=== PATIENT | male | born 1985 | race Caucasian/White ===

== ENCOUNTER 2016-10-06 16:50 | Inpatient (IN) | payer OTHER, MEDICAID ==
[2016-10-06] MEDS ORDERED: LORazepam 1 MG TAB PO ONE (17:34)
--- NOTE | 2016-10-06 17:36 | EDPHY ---
H & P Stated Complaint: " "i am looking to get into a psych hospitall" Source: Patient Exam Limitations: No limitations - Personal History Current Tetanus Diphtheria and Acellular Pertussis (TDAP): Yes Tetanus Vaccine Date: 02/2012 - Medical/Surgical History Hx Asthma: No Hx Chronic Respiratory Disease: No Hx Diabetes: No Hx Cardiac Disease: No Hx Renal Disease: No Hx Cirrhosis: No Hx Alcoholism: Yes Hx HIV/AIDS: No Hx Splenectomy or Spleen Trauma: No Other PMH: Medical- schizophrenia, depression, bipolar, HTN, ADHD. COURT ORDERED MEDS - Social History Smoking Status: Heavy smoker Time Seen by Provider: 10/06/16 17:15 HPI/ROS: CHIEF COMPLAINT: Requesting inpatient psychiatric hospitalization HISTORY OF PRESENT ILLNESS: The patient presents to the ED requesting inpatient psychiatric hospitalization. He reports he has been off his psychiatric medications for the past week which include Depakote, Abilify and Zoloft. The patient reportedly is a client of [facility]. The patient states he has had some thoughts of self-harm. He has had thoughts of cutting his wrist. The patient denies any drug or alcohol use. The patient denies any significant past medical history. The patient has not had a regular follow-up appointment with his therapist. The patient did not attempt to go to the crisis Center today. REVIEW OF SYSTEMS: A comprehensive 10 point review of systems is otherwise negative aside from elements mentioned in the history of present illness. (George Groves) - Physical Exam Exam: General Appearance: Disheveled, no acute distress Eyes: Pupils equal and round no pallor or injection ENT, Mouth: Mucous membranes moist Respiratory: There are no retractions, lungs are clear to auscultation Cardiovascular: Regular rate and rhythm Gastrointestinal: Abdomen is soft and nontender, no masses, bowel sounds normal Neurological: A&O, normal motor function, normal sensory exam, normal cranial nerves Skin: Warm and dry, no rashes, multiple tattoos Musculoskeletal: Neck is supple nontender Extremities: symmetrical, full range of motion Psychiatric: Patient is oriented X 3, there is no agitation, cooperative, endorses thoughts of self-harm, reports auditory hallucinations intermittently/ chronically (George Groves) Constitutional: Initial Vital Signs Temperature (C) 36.6 C 10/06/16 17:08 Heart Rate 86 10/06/16 17:08 Respiratory Rate 16 10/06/16 17:08 Blood Pressure 107/67 10/06/16 17:08 O2 Sat (%) 92 10/06/16 17:08 O2 Delivery Mode Room Air Allergies/Adverse Reactions: No Known Allergies Allergy (Verified 09/22/14 21:19) Home Medications: Medication Instructions Recorded ARIPiprazole [Abilify 5 mg (*)] 5 mg PO DAILY 09/23/14 Disulfiram [Antabuse 250 MG (*)] 250 mg PO DAILY 09/23/14 Divalproex ER [Depakote ER 500 MG 3,000 mg PO DAILY 09/23/14 (*)] Paliperidone Palmitate [Invega 234 mg IM Q30D 02/16/15 Sustenna (*)] Sertraline HCl [Zoloft 50mg (*)] 50 mg DAILY 02/16/15 Medical Decision Making ED Course/Re-evaluation: 0731AM: No acute events overnight. Patient pending mental health evaluation. Patient signed over to Dr. Gamez. (Yoni Byrd) 9:15 a.m.. Patient has been evaluated by mental health. He is placed on a 72 hour hold. They are looking for placement Patient remained stable on my shift. (Alfredo Gamez) 4:00 p.m. patient accepted at [address] [place] [address] Birmingham. Transfer paperwork completed. (Austen Feliciano) Care Turn Over: Care to Dr. Feliciano at 3:00 p.m. (Alfredo Gamez) - Data Points Laboratory Results: Laboratory Results 10/06/16 17:40 10/06/16 17:40 Medications Given: Discontinued Medications Diphtheria/Tetanus/Acell Pertussis (Boostrix) 0.5 ml IM .ONCE ONE Stop: 10/06/16 22:27 Last Admin: 10/06/16 22:27 Dose: Not Given Lorazepam (Ativan) 1 mg PO EDNOW ONE Stop: 10/06/16 17:35 Last Admin: 10/06/16 17:52 Dose: 1 mg Departure - Departure Disposition: Other Psych, Not Jimmy Clinical Impression: Schizophrenia Qualifiers: Schizophrenia type: other Qualified Code(s): F20.89 - Other schizophrenia Condition: Fair Referrals: NONE *PRIMARY CARE P,. [Primary Care Provider] - As per Instructions
[2016-10-06 17:48] LABS: ADD DIFF? NO; ADD MORPH? NO; ADD SCAN? NO; ATYPICAL LYMPHOCYTE FLAG 0 (0-99); FRAGMENT RBC FLAG 0 (0-99); HEMATOCRIT 44.6 % (40.0-51.0); HEMOGLOBIN 15.3 g/dL (13.7-17.5); LEFT SHIFT FLG 0 (0-99); LIPEMIA HEMOLYSIS FLAG 90 (0-99); MEAN CELL HEMOGLOBIN 31.4 pg (27.9-34.1); MEAN CELL HEMOGLOBIN CONCENTR. 34.3 g/dL (32.4-36.7); MEAN CELL VOLUME 91.4 fL (81.5-99.8); MEAN PLATELET VOLUME 10.5 fL (8.7-11.7); PLATELET CLUMPS FLAG 0 (0-99); PLATELET COUNT 194 10^3/uL (150-400); RED BLOOD CELL COUNT 4.88 10^6/uL (4.40-6.38); RED CELL DISTRIBUTION WIDTH 13.2 % (11.5-15.2)
[2016-10-06 18:01] LABS: ANION GAP 11 mEq/L (8-16); CARBON DIOXIDE 23 mEq/l (22-31); CHLORIDE 105 mEq/L (97-110); CREATININE 0.7 mg/dL (0.7-1.3); ETHANOL SERUM < 10 mg/dL (0-10); GLOMERULAR FILTRATION RATE > 60; GLUCOSE 88 mg/dL (70-100); POTASSIUM 4.1 mEq/L (3.5-5.2); SODIUM 139 mEq/L (134-144)
[2016-10-06] MEDS ORDERED: TDAP ADULT 0.5 ML INJ (BOOSTRIX) IM ONE (22:26)
[2016-10-07] MEDS ORDERED: LORazepam 0.5 MG TAB PO PRN (20:14)
[2016-10-07] MEDS ORDERED: OLANZapine DISINTEGR 10 MG TAB PO PRN (20:14)
[2016-10-07] MEDS ORDERED: MAGNESIUM HYDROXIDE 30 ML UDCUP PO PRN (20:14)
[2016-10-07] MEDS ORDERED: ACETAMINOPHEN 325 MG TAB PO PRN (20:14)
[2016-10-07] MEDS ORDERED: MAG HYDROX/AL HYDROX/SIMETH 30 ML UDCUP PO PRN (20:14)
[2016-10-08 07:43] LABS: ALBUMIN 3.9 g/dL (3.5-5.0); BILIRUBIN,TOTAL 0.7 mg/dL (0.1-1.4); BILIRUBIN-CONJUGATED 0.5 mg/dL (0.0-0.5); BILIRUBIN-UNCONJUGATED 0.2 mg/dL (0.0-1.1); TOTAL PROTEIN 6.3 g/dL (6.3-8.2)
--- NOTE | 2016-10-08 08:56 | GCON ---
[f rep st] CONSULTATION [facility] BEHAVIORAL HEALTH CLEARANCE EVALUATION REFERRING PHYSICIAN: Mariangel Birmingham MD REASON FOR CONSULTATION: Inpatient behavioral health medical evaluation. HISTORY OF PRESENT ILLNESS: This is a 31-year-old male with history of schizophrenia who presented to the emergency department at [facility] on 10/06/2016 requesting admission to the behavioral health unit. The patient has been off his Depakote, Abilify, and Zoloft for some time. He has been feeli ng very down and depressed with thoughts of self-harm. He has thought about cutting his wrists. He denies any alcohol or tobacco abuse. During the time of my exam, he denies any active medical problems such as fevers or chills. He nickolas es chest pain or shortness of breath. He denies any nausea, vomiting, or diarrhea. He denies any u rinary complaints. PAST MEDICAL HISTORY: 1. Schizophrenia. 2. Depression. 3. Hypertension, not on medications. 4. ADHD. PAST SURGICAL HISTORY: Denies. HOME MEDICATIONS: Zoloft, fish oral, Depakote, Antabuse, Abilify. SOCIAL HISTORY: The patient tells me he lives outside. He denies any alcohol or tobacco; however, the medical records indicate that he is a smoker. FAMILY HISTORY: Reviewed and noncontributory. REVIEW OF SYSTEMS: A comprehensive 10-point review of systems was done and was negative except for as mentioned in the HPI. PHYSICAL EXAMINATION: VITAL SIGNS: Blood pressure 132/70, pulse of 113, respiratory rate 14, O2 sa turation 93% on room air. Temperature afebrile. GENERAL: Disheveled but no acute distress. HEAD: Normocephalic, atraumatic. EYES: PERRLA. Sclerae anicteric. MOUTH: Moist mucous membranes. N AGUS: Supple. No lymphadenopathy. CARDIOVASCULAR: S1, S2. No murmurs, rubs, clicks, gallops. No JVD. No lower extremity edema. PULMONARY: Lungs are clear. No wheezes, rales, or rhonchi. ABDO MEN: Soft, nontender, nondistended. No guarding or rebound tenderness. Normoactive bowel sounds. EXTREMITIES: No clubbing or cyanosis. NEURO: Cranial nerves 2-12 grossly intact. No focal motor or sensory deficits. PSYCH: Flat affect. Avoidance posture. DIAGNOSTICS: WBC 6.9, hemoglobin 15.3, hematocrit 44.6, platelets 194. Sodium 139, potassium 4.1, chloride 105, CO2 23, BUN 28, creatinine 0.7, glucose 88. LFTs unremarkable. Urine tox screen was non-negative for amphetamines and THC. ASSESSMENT: 1. This is a 31-year-old male with a history of schizophrenia who has been admitted to [facility] unit after being off his medications and being acutely depressed. Plan: At this time, the curtis stroud appears to be medically stable for further treatment on the behavioral health unit. Please ca ll the hospitalist service with any further questions regarding his care. 2. Evidence of polysubstance abuse with urine tox screen non-negative for amphetamines and THC. Pl an: Recommend cessation counseling prior to discharge and as an outpatient. 3. Prerenal azotemia evidenced by a BUN of 28 and a creatinine of 0.7. Plan: Encourage oral hydra tion. Thank you for allowing me to participate in the care of this patient. Once again, please call the [facility] service with any further questions regarding his care. /[id number]/MODL
[2016-10-08] MEDS ORDERED: ARIPiprazole 10 MG TAB PO ONE (15:11)
[2016-10-08] MEDS ORDERED: DIVALPROEX ER 500 MG TAB PO ONE (15:13)
[2016-10-08] MEDS: SERTRALINE HCL 50 MG TAB PO SCH (20:42)
--- NOTE | 2016-10-09 01:04 | BAPA ---
[f rep st] ADMISSION PSYCHIATRIC ASSESSMENT DATE OF SERVICE: 10/08/2016 CHIEF COMPLAINT: "I was thinking about killing myself because I lost my apartment. I was thinking of ways to do it, thinking of slitting my wrists." HISTORY OF PRESENT ILLNESS: Patient is a 31-year-old male, who self presented to [facility] Emergency Department reporting suicidal ideation and increased auditory hallucinations due to being off psychiatric medications for about 1 week. Urine drug screen in ED was positive for methamphetamine, but otherwise negative. He was placed on an M1 hold for grave disability on 10/07/2016 at 9: 03 a.m. Patient reported having been evicted from his apartment 1 week earlier and all medications were locked in his apartment. He became very defensive when asked about methamphetamine in his urine drug screen, escalating briefly and saying, "I don't do drugs!" He did endorse having suicidal ideation prior to admission of slitting his wrists with a knife. To the emergency room equipment operation instructor, he stated his intent was possible, "You'd better not discharge me." He also stated he had "knives at my campsite," and at that time, stated, "I need to be in a mental institution!" Per EPS evaluation, he was last seen by psychiatrist, Dr. Pichardo, on 09/10/2016, and note indicated that there were continued concerns about drug use at that time and watching porn loudly in the house. Patient apparently lost his housing through [facility] at the beginning of September due to being noncompliant with housing rules. He last took medications on 10/03/2016 per records, but he reports stopped taking medications 1 week ago. Patient stated he was homeless for the past several days and voices were increasing. He presented with request to restart his medications. PAST PSYCHIATRIC HISTORY: As noted above. Open to [facility] on their housing team with psychiatrist, Dr. Pichardo, diagnosed with schizophrenia at age 16 with multiple inpatient hospitalizations averaging approximately 3 times a year but has been relatively stable since 02/2015 with no inpatient admission since that time. He has also been on court-ordered medication 3 different times in the past, most recently ending 09/27/2015. He has a long history of medication noncompliance. CURRENT MEDICATIONS: Most recent psychiatric medications include Depakote ER 3000 mg p.o. q.a.m. [facility] notes indicate 6 tablets q.a.m. of 500 mg each. Patient reports he thinks he is only supposed to be taking 4 tablets daily. Zoloft 50 mg p.o. q.a.m. Lovaza 1 g, take 2 p.o. q.a.m. with food. Invega Trinza 819 mg IM q.12 weeks. Patient does not want to take this and does not think he needs it. Antabuse 250 mg p.o. q.a.m. He reports no drinking for several years and would like to continue this. Abilify 30 mg p.o. q.a.m., additionally 10 mg p.o. q.a.m. Patient thinks he should be taking 50 mg daily. SAFETY HISTORY: History of suicide attempts per EPS evaluation. Per evaluation on 12/15/2014, "half a bottle of acetaminophen." Evaluation on 2013 includes notation that patient one summer previously had "repeatedly injected his arms with rum causing serious infections." On 12/24/2013 [place] police officers responded to reports of armed male with 2-1/2 foot long machete on the [address] who began holding it over his head in a menacing manner necessitating 2 police officers to brandish their weapons at which the patient let go of the machete. SUBSTANCE USE: History of substance use. Urine drug screen positive for methamphetamine, negative for other drugs of abuse tested for in [place] ED. BAL 0.00. Patient denies any current or recent substance use. He insists he only smokes cigarettes, half pack per day, yet his fingers are extremely heavily nicotine stained. LEGAL HISTORY: Patient has history of unspecified aggression towards others with history of incarceration. Unknown current legal. SOCIAL HISTORY: Unemployed on SSI. unmarried. Per [facility] records, patient has used meth while in [facility] housing, and this has been one of the reasons patient has lost his housing in the past. Recently evicted. MENTAL STATUS EXAMINATION: On admission, patient was disheveled, casually dressed, cooperative with interview, although somewhat impatient and requesting to be restarted on his medications, not wanting to engage in a prolonged interview. Speech was normal rate, volume, articulate. However became loud and angry tone when asked about methamphetamine, denying any use whatsoever. Mood was "depressed". Affect was mildly irritable. He reported current visual and auditory hallucinations, adding "I always hallucinate," then looked up in corner of room and stated, "something just flew down from there and hit me." He did not appear responding to internal stimuli. He denied any suicidal ideation "since I'm here." Thought processes were goal directed. In response , he did not appear to have any thought blocking. He was focused on restarting medications and getting some rest. He denied any thoughts of harming others. He was alert and oriented x4. IMPRESSION: A 31-year-old male with a long history of schizophrenia, medication noncompliance and substance use, who self presented to [facility] ED reporting suicidal ideation with plan to cut wrists and increased auditory hallucinations due to medication noncompliance x1 week in the setting of recent eviction and homelessness requesting restart of his medications. He expresses motivation for treatment, and does have insight into his need for medications and hospitalization although questioned some element of secondary gain due to present homelessness. Given his history of psychosis, self-harm, and threatening behavior, as well as recent substance use and decompensation psychiatrically over past week, off medications, hospitalization is indicated and necessary for restabilization as well as structure of the unit and plans for return to community with mental health support after stabilization. DIAGNOSIS: Schizophrenia, acute exacerbation Methamphetamine use disorder, moderate Nicotine use disorder, moderate Homeless, chronic mental illness PLAN: Restart home medications. Will start at slightly lower dose initially with Depakote 1000 mg now and at h.s. then 2000mg po qhs, Zoloft 50 mg po qhs Patient refuses to restart Invega Trinza. He would like to resume Antabuse 250 mg as well as Abilify, which we will start at 15 mg x1 now then 15 mg h.s. then continue 30 mg q.h.s and evaluate. Patient thereafter. Plan to increase as indicated. Will also add lorazepam 1 mg q.4 hours p.r.n. Patient does complain of excessive sedation and sleepiness, wondering whether we can prescribe caffeine pills, and he does feel he may have a sleeping disorder although was unable to specify, is not sure if he snores at night or stops breathing. Could be worthwhile to try screening for obstructive sleep apnea with nocturnal pulse oximetry. Informed patient of some medications which could be sedating, including Depakote, which he typically takes in the morning, can offer at bedtime. Also Abilify could try at bedtime. He also would like to take Zoloft at bedtime. It is unclear as to whether this is a significant issue, however, since his presentation is confounded with substance use and noncompliance. Will also place on suicide precautions and assault awareness and encourage patient participation in milieu activities and groups. Coordinate care with P. /[id number]/MODL SARAH
[2016-10-09] MEDS ORDERED: CHOLECALCIFEROL VIT D3 2,000 UNITS TAB/CAP ONE (07:36)
[2016-10-09] MEDS ORDERED: VENLAFAXINE XR 75 MG CAP PO ONE (07:37)
[2016-10-09] MEDS ORDERED: VENLAFAXINE XR 150 MG CAP PO ONE (07:38)
[2016-10-09] MEDS ORDERED: GABAPENTIN 300 MG CAP ONE (07:39)
[2016-10-09] MEDS ORDERED: MULTIVITAMINS 1 EACH TAB PO ONE (07:40)
[2016-10-09] MEDS ORDERED: ASCORBIC ACID 500 MG TAB ONE (07:41)
[2016-10-09] MEDS ORDERED: NICOTINE 21 MG/24 HR PATCH TD ONE (07:42)
[2016-10-09] MEDS ORDERED: ARIPiprazole 5 MG TAB PO SCH ×2 (09:00→21:00)
[2016-10-09] MEDS: DISULFIRAM 250 MG TAB PO SCH (11:35)
[2016-10-09] MEDS: DIVALPROEX ER 500 MG TAB PO SCH ×2 (11:35→20:40)
--- NOTE | 2016-10-09 12:44 | SOAPPROG ---
SOAP Progress Note Assessment/Plan: Assessment: Plan: 10/09/16 12:44 Remains psychotic in setting of medication non-compliance and substance abuse. He is willing to take meds at HS. Will adjust. Subjective: Pt seen, discussed with staff. Reports feeling "pretty good." Talks to me about losing his home and needing a place to live. He refused his meds this morning stating that "one of those makes me sleep all day." States he will take them at night. Generally calm, coop, appropriate in the milieu. Objective: Vital Signs Temp Pulse Resp BP Pulse Ox 36.5 C 113 H 14 132/70 H 93 10/07/16 17:55 10/07/16 17:55 10/07/16 17:55 10/07/16 17:55 10/07/16 17:55 MSE; Calm, coop. Affect is constricted, stable. Mood is "good." TP tangential. TC reveals some paranoia, odd beliefs. - Time Spent With Patient Time Spent With Patient: 25" - Pending Discharge Pending Discharge Within 24 Hours: No Pending Discharge Within 48 Hours: No ICD10 Worksheet Patient Problems: Problems Problem Status Onset Schizophrenia Acute Schizophrenia, paranoid, chronic with acute exacerbation Acute
[2016-10-09] MEDS: NICOTINE POLACRILEX 2 MG GUM B PRN (13:31)
[2016-10-09] MEDS: SERTRALINE HCL 50 MG TAB PO SCH (20:40)
[2016-10-09] MEDS: ARIPiprazole 10 MG TAB PO SCH (20:40)
[2016-10-10] MEDS: DIVALPROEX ER 500 MG TAB PO SCH ×3 (09:01→20:38)
[2016-10-10] MEDS: DISULFIRAM 250 MG TAB PO SCH ×2 (09:01→11:03)
--- NOTE | 2016-10-10 16:21 | SOAPPROG ---
SOAP Progress Note Assessment/Plan: Assessment: Plan: 10/09/16 12:44 Remains psychotic in setting of medication non-compliance and substance abuse. He is willing to take meds at HS. Will adjust. 10/10/16 16:23 Cooperative. Psychosis stable. CCM. Subjective: Pt seen, discussed with staff. Reports feeling "fine." Spending most of morning in bed after sleeping more then eight hours last night. He cannot identify goals for treatment or d/c. He is in good behavioral control though irritable at times if pressed. Agrees to take VPA BID, but insists on other meds at HS only. Objective: Vital Signs Temp Pulse Resp BP Pulse Ox 36.5 C 113 H 14 132/70 H 93 10/07/16 17:55 10/07/16 17:55 10/07/16 17:55 10/07/16 17:55 10/07/16 17:55 MSE: Calm, coop. Lying in bed. Affect is blunted, stable. Mood is "fine." TP generally linear. TC reveals no mention of AH's at this time. Guarded and likely paranoid. - Time Spent With Patient Time Spent With Patient: 15" - Pending Discharge Pending Discharge Within 24 Hours: No Pending Discharge Within 48 Hours: No ICD10 Worksheet Patient Problems: Problems Problem Status Onset Schizophrenia Acute Schizophrenia, paranoid, chronic with acute exacerbation Acute
[2016-10-10] MEDS: ARIPiprazole 10 MG TAB PO SCH (20:37)
[2016-10-10] MEDS: SERTRALINE HCL 50 MG TAB PO SCH (20:37)
[2016-10-11] MEDS: DIVALPROEX ER 500 MG TAB PO SCH ×2 (08:36→20:45)
[2016-10-11] MEDS: NICOTINE POLACRILEX 2 MG GUM B PRN (09:17)
[2016-10-11] MEDS ORDERED: TUBERCULIN (PPD) 5 TU/0.1 ML SYRINGE ID ONE (11:17)
--- NOTE | 2016-10-11 13:22 | SOAPPROG ---
SOAP Progress Note Assessment/Plan: Assessment: * Daytime somnolence. Crowded airway. R/O sleep apnea. Should have sleep study as outpatient. Get overnight oxymetry while inpatient. * Obesity. Would benefit from weight reduction. No medical contraindication to any discharge disposition. 10/11/16 13:22 Subjective: ATSP for physical exam needed for discharge destination. C/O sleepy all the time. Says he had eight cups of coffee today. Does not know if he snores; reports drooling at night and awakens because pillow is wet. No sleep attacks or drop attacks. Objective: Vital Signs Temp Pulse Resp BP Pulse Ox 36.8 C 51 L 15 115/68 92 10/11/16 06:23 10/11/16 06:23 10/11/16 06:23 10/11/16 06:23 10/11/16 06:23 Physical Exam - Physical Exam General Appearance: WD/WN, alert, no apparent distress, obese Neck: full range of motion, supple, No thyromegaly Respiratory: normal breath sounds, No crackles, No rhonchi, No wheezing Cardiac/Chest: normal peripheral pulses, regular rate, rhythm, No edema Abdomen: normal bowel sounds, non-tender, soft, No distended Back: Normal inspection Skin: normal color, warm/dry Neuro/Psych: no motor/sensory deficits, alert, normal mood/affect, oriented x 3 , cognition abnormalities (Perseverative) ICD10 Worksheet Patient Problems: Problems Problem Status Onset Schizophrenia Acute Schizophrenia, paranoid, chronic with acute exacerbation Acute
--- NOTE | 2016-10-11 15:43 | SOAPPROG ---
SOAP Progress Note Assessment/Plan: Assessment: Plan: 10/09/16 12:44 Remains psychotic in setting of medication non-compliance and substance abuse. He is willing to take meds at . Will adjust. 10/10/16 16:23 Cooperative. Psychosis stable. CCM. 10/11/16 15:45 Remains cooperative. Compliant with meds. CCM. Continue d/c planning. Subjective: Pt seen, discussed with staff. Reports feeling "worried." States he is worried about his belongings that are in the custody of a friend who is homeless and living in a tent. He states he would rather stay in the hospital until he has a placed to go. Compliant with meds now. Sleeping excessively. Objective: Vital Signs Temp Pulse Resp BP Pulse Ox 36.8 C 51 L 15 115/68 92 10/11/16 06:23 10/11/16 06:23 10/11/16 06:23 10/11/16 06:23 10/11/16 06:23 MSE: Calm, coop. Grooming marginal. Some mild agitation noted later when pacing the jaime. He is internally preoccupied and reports AH's. Also states Dr. Pichardo and P's are "conspiring against me." - Time Spent With Patient Time Spent With Patient: 25" - Pending Discharge Pending Discharge Within 24 Hours: No ICD10 Worksheet Patient Problems: Problems Problem Status Onset Schizophrenia Acute Schizophrenia, paranoid, chronic with acute exacerbation Acute
[2016-10-11] MEDS: SERTRALINE HCL 50 MG TAB PO SCH (20:45)
[2016-10-11] MEDS: ARIPiprazole 10 MG TAB PO SCH (20:45)
[2016-10-11] MEDS: DISULFIRAM 250 MG TAB PO SCH (20:46)
[2016-10-12] MEDS: DIVALPROEX ER 500 MG TAB PO SCH ×2 (09:23→21:03)
--- NOTE | 2016-10-12 15:26 | SOAPPROG ---
SOAP Progress Note Assessment/Plan: Assessment: Plan: 10/09/16 12:44 Remains psychotic in setting of medication non-compliance and substance abuse. He is willing to take meds at . Will adjust. 10/10/16 16:23 Cooperative. Psychosis stable. CCM. 10/11/16 15:45 Remains cooperative. Compliant with meds. CCM. Continue d/c planning. 10/12/16 15:26 No interval change. CCM, continue d/c planning. Subjective: Pt seen, discussed with staff. Remains in good behavioral control. Compliant with meds. No c/o's. Continues to focus on going to [facility] despite my telling him that they do not want him there. He states he wants to remain in the hospital "until I get an apartment." Objective: Vital Signs Temp Pulse Resp BP Pulse Ox 36.7 C 67 14 101/51 L 94 10/12/16 06:15 10/12/16 06:15 10/12/16 06:15 10/12/16 06:15 10/12/16 06:15 MSE: Moderately agitated, pacing, though cooperative and interactive. Affect is constricted, stable. Mood is "OK." TP linear at times, derails at others. TC reveals AH's, paranoia. - Time Spent With Patient Time Spent With Patient: 15" - Pending Discharge Pending Discharge Within 24 Hours: No Pending Discharge Within 48 Hours: No ICD10 Worksheet Patient Problems: Problems Problem Status Onset Schizophrenia Acute Schizophrenia, paranoid, chronic with acute exacerbation Acute
[2016-10-12] MEDS: DISULFIRAM 250 MG TAB PO SCH (21:03)
[2016-10-12] MEDS: SERTRALINE HCL 50 MG TAB PO SCH (21:04)
[2016-10-12] MEDS: ARIPiprazole 10 MG TAB PO SCH (21:04)
[2016-10-13] MEDS: DIVALPROEX ER 500 MG TAB PO SCH ×2 (08:38→21:33)
--- NOTE | 2016-10-13 14:30 | SOAPPROG ---
SOAP Progress Note Assessment/Plan: Assessment: Plan: 10/09/16 12:44 Remains psychotic in setting of medication non-compliance and substance abuse. He is willing to take meds at HS. Will adjust. 10/10/16 16:23 Cooperative. Psychosis stable. CCM. 10/11/16 15:45 Remains cooperative. Compliant with meds. CCM. Continue d/c planning. 10/12/16 15:26 No interval change. CCM, continue d/c planning. 10/13/16 14:30 Remains cooperative and approaching baseline. CCM. Subjective: Pt seen, discussed with staff. Reports feeling "pretty good." Remains compliant and cooperative. Eating excessively. Grooming is adequate. Remains unrealistic re: d/c plans. Objective: Vital Signs Temp Pulse Resp BP Pulse Ox 36.7 C 59 L 14 141/75 H 91 L 10/12/16 06:15 10/13/16 06:24 10/13/16 06:24 10/13/16 06:24 10/13/16 06:24 MSE: Calm, coop. Affect is blunted, stable. Mood is "pretty good." TP linear with continued derailment. TC reveals AH's, paranoia. - Time Spent With Patient Time Spent With Patient: 15" - Pending Discharge Pending Discharge Within 24 Hours: No Pending Discharge Within 48 Hours: No ICD10 Worksheet Patient Problems: Problems Problem Status Onset Schizophrenia Acute Schizophrenia, paranoid, chronic with acute exacerbation Acute
[2016-10-13] MEDS: SERTRALINE HCL 50 MG TAB PO SCH (21:33)
[2016-10-13] MEDS: DISULFIRAM 250 MG TAB PO SCH (21:33)
[2016-10-13] MEDS: ARIPiprazole 10 MG TAB PO SCH (21:33)
[2016-10-14 06:06] VITALS: TEMP 97.6
[2016-10-14] MEDS: DIVALPROEX ER 500 MG TAB PO SCH ×2 (09:27→20:40)
--- NOTE | 2016-10-14 10:52 | SOAPPROG ---
SOAP Progress Note Assessment/Plan: Assessment: Plan: 10/14/16 08:00 DAY UPDATE/EXAM: Nursing reports pt remains in behavioral control, c/w cares and meds; known chronic sx and rx career, dx'd remotely with SAD and SA (meth); h/o noncompliance with community rx including meds; lost [facility] housing 09/04/16 and 1 week [employer] evicted for noise and disruption, unmedicated and likely psychotic at the time; admitted for c/o acute AH and SI; since admission has recompensated on meds as referenced and is in DC planning phase - resisting placement in residential resource for homeless clients/ on exam pesents as flattened, no overt psychosis, very concrete and impoverished thought process; requests DC to street "and I'll find an apartment; I have a voucher: limits set and told pt that CC would discuss realistic DC planning later today which pt accepted ASSESSMENT/PLAN: recompensating progress and in final inpt rx phase/ no change in meds and current focus on establishing DC plan for placement and f/u rx; is an open case with [facility]; meds as referenced Objective: Vital Signs Temp Pulse Resp BP Pulse Ox 36.4 C 66 17 130/71 H 93 10/14/16 05:56 10/14/16 05:56 10/14/16 05:56 10/14/16 05:56 10/14/16 05:56 ICD10 Worksheet Patient Problems: Problems Problem Status Onset Schizophrenia Acute Schizophrenia, paranoid, chronic with acute exacerbation Acute
--- NOTE | 2016-10-14 10:54 | SOAPPROG ---
SOAP Progress Note Assessment/Plan: Assessment: Plan: 10/14/16 08:00 DAY ' UPDATE/EXAM: Nursing reports pt remains in behavioral control, c/w cares and meds; known chronic sx and rx career, dx'd remotely with SAD and SA (meth); h/o noncompliance with community rx including meds; lost [facility] housing 09/04/16 and 1 week [employer] evicted for noise and disruption, unmedicated and likely psychotic at the time; admitted for c/o acute AH and SI; since admission has recompensated on meds as referenced and is in DC planning phase - resisting placement in residential resource for homeless clients/ on exam pesents as flattened, no overt psychosis, very concrete and impoverished thought process; requests DC to street "and I'll find an apartment; I have a voucher: limits set and told pt that CC would discuss realistic DC planning later today which pt accepted ASSESSMENT/PLAN: recompensating progress and in final inpt rx phase/ no change in meds and current focus on establishing DC plan for placement and f/u rx; is an open case with [facility]; meds as referenced 10/14/16 10:53 Medications Generic Name Dose Route Start Last Admin Trade Name Freq PRN Reason Stop Dose Admin Aripiprazole 30 mg 10/09/16 21:00 10/13/16 21:33 Abilify PO 04/07/17 20:59 30 mg HS SID Disulfiram 250 mg 10/11/16 21:00 10/13/16 21:33 Antabuse PO 04/09/17 20:59 250 mg HS SID Divalproex Sodium 1,000 mg 10/09/16 09:00 10/14/16 09:27 Depakote Er PO 04/07/17 08:59 1,000 mg BID SID Sertraline HCl 50 mg 10/11/16 21:00 10/13/16 21:33 Zoloft PO 04/09/17 20:59 50 mg HS SID Objective: Vital Signs Temp Pulse Resp BP Pulse Ox 36.4 C 66 17 130/71 H 93 10/14/16 05:56 10/14/16 05:56 10/14/16 05:56 10/14/16 05:56 10/14/16 05:56 ICD10 Worksheet Patient Problems: Problems Problem Status Onset Schizophrenia Acute Schizophrenia, paranoid, chronic with acute exacerbation Acute
[2016-10-14] MEDS: SERTRALINE HCL 50 MG TAB PO SCH (20:40)
[2016-10-14] MEDS: ARIPiprazole 10 MG TAB PO SCH (20:40)
[2016-10-14] MEDS: DISULFIRAM 250 MG TAB PO SCH (20:40)
--- NOTE | 2016-10-15 06:35 | SOAPPROG ---
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, unmedicated and likely psychotic at the time; admitted for c/o acute AH and SI; since admission has recompensated on meds as referenced and is in DC planning phase - resisting placement in residential resource for homeless clients/ on exam presents as flattened, no overt psychosis, very concrete and impoverished thought process; requests DC to street "and I'll find an apartment; I have a voucher"; limits set and told pt that CC would discuss realistic DC planning later today which pt accepted ASSESSMENT/PLAN: recompensating progress and in final inpt rx phase/ no change in meds and current focus on establishing DC plan for placement and f/u rx; is an open case with [facility]; meds as referenced 10/14/16 10:53 Medications Generic Name Dose Route Start Last Admin Trade Name Freq PRN Reason Stop Dose Admin Aripiprazole 30 mg 10/09/16 21:00 10/13/16 21:33 Abilify PO 04/07/17 20:59 30 mg HS SID Disulfiram 250 mg 10/11/16 21:00 10/13/16 21:33 Antabuse PO 04/09/17 20:59 250 mg HS SID Divalproex Sodium 1,000 mg 10/09/16 09:00 10/14/16 09:27 Depakote Er PO 04/07/17 08:59 1,000 mg BID SID Sertraline HCl 50 mg 10/11/16 21:00 10/13/16 21:33 Zoloft PO 04/09/17 20:59 50 mg HS SID 10/15/16 DAY 02/03' UPDATE/PLAN: Objective: Vital Signs Temp Pulse Resp BP Pulse Ox 36.4 C 66 17 130/71 H 93 10/14/16 05:56 10/14/16 05:56 10/14/16 05:56 10/14/16 05:56 10/14/16 05:56 ICD10 Worksheet Patient Problems: Problems Problem Status Onset Schizophrenia Acute Schizophrenia, paranoid, chronic with acute exacerbation Acute
[2016-10-15] MEDS: DIVALPROEX ER 500 MG TAB PO SCH ×2 (09:28→20:41)
--- NOTE | 2016-10-15 13:19 | SOAPPROG ---
SOAP Progress Note Assessment/Plan: Assessment: Plan: 10/14/16 08:00 DAY UPDATE/EXAM: Nursing reports pt remains in behavioral control, c/w cares and meds; known chronic sx and rx career, dx'd remotely with SAD and SA (meth); h/o noncompliance with community rx including meds; lost [facility] housing 09/04/16 and 1 week [employer]IVATE [employer] EX[employer] evicted for noise and disruption, unmedicated and likely psychotic at the time; admitted for c/o acute AH and SI; since admission has recompensated on meds as referenced and is in DC planning phase - resisting placement in residential resource for homeless clients/ on exam presents as flattened, no overt psychosis, very concrete and impoverished thought process; requests DC to street "and I'll find an apartment; I have a voucher"; limits set and told pt that CC would discuss realistic DC planning later today which pt accepted ASSESSMENT/PLAN: recompensating progress and in final inpt rx phase/ no change in meds and current focus on establishing DC plan for placement and f/u rx; is an open case with [facility]; meds as referenced 10/14/16 10:53 Medications Generic Name Dose Route Start Last Admin Trade Name Freq PRN Reason Stop Dose Admin Aripiprazole 30 mg 10/09/16 21:00 10/13/16 21:33 Abilify PO 04/07/17 20:59 30 mg HS SID Disulfiram 250 mg 10/11/16 21:00 10/13/16 21:33 Antabuse PO 04/09/17 20:59 250 mg HS SID Divalproex Sodium 1,000 mg 10/09/16 09:00 10/14/16 09:27 Depakote Er PO 04/07/17 08:59 1,000 mg BID SID Sertraline HCl 50 mg 10/11/16 21:00 10/13/16 21:33 Zoloft PO 04/09/17 20:59 50 mg HS SID 10/15/16 10:15 DAY 02/03' UPDATE/PLAN: 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 mild residual AH ASSESSMENT/PLAN: ongoing resistance to closing on placement planning; ? residual AH/ no change in current meds or management Objective: Vital Signs Temp Pulse Resp BP Pulse Ox 36.4 C 66 17 130/71 H 93 10/14/16 05:56 10/14/16 05:56 10/14/16 05:56 10/14/16 05:56 10/14/16 05:56 ICD10 Worksheet Patient Problems: Problems Problem Status Onset Schizophrenia Acute Schizophrenia, paranoid, chronic with acute exacerbation Acute
[2016-10-15] MEDS: ARIPiprazole 10 MG TAB PO SCH (20:41)
[2016-10-15] MEDS: SERTRALINE HCL 50 MG TAB PO SCH (20:41)
[2016-10-15] MEDS: DISULFIRAM 250 MG TAB PO SCH (20:42)
--- NOTE | 2016-10-16 05:53 | SOAPPROG ---
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, unmedicated and likely psychotic at the time; admitted for c/o acute AH and SI; since admission has recompensated on meds as referenced and is in DC planning phase - resisting placement in residential resource for homeless clients/ on exam presents as flattened, no overt psychosis, very concrete and impoverished thought process; requests DC to street "and I'll find an apartment; I have a voucher"; limits set and told pt that CC would discuss realistic DC planning later today which pt accepted ASSESSMENT/PLAN: recompensating progress and in final inpt rx phase/ no change in meds and current focus on establishing DC plan for placement and f/u rx; is an open case with P; meds as referenced 10/14/16 10:53 Medications Generic Name Dose Route Start Last Admin Trade Name Freq PRN Reason Stop Dose Admin Aripiprazole 30 mg 10/09/16 21:00 10/13/16 21:33 Abilify PO 04/07/17 20:59 30 mg HS SID Disulfiram 250 mg 10/11/16 21:00 10/13/16 21:33 Antabuse PO 04/09/17 20:59 250 mg HS SID Divalproex Sodium 1,000 mg 10/09/16 09:00 10/14/16 09:27 Depakote Er PO 04/07/17 08:59 1,000 mg BID SID Sertraline HCl 50 mg 10/11/16 21:00 10/13/16 21:33 Zoloft PO 04/09/17 20:59 50 mg HS SID 10/15/16 10:15 DAY 02/03' UPDATE/PLAN: 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 mild residual AH ASSESSMENT/PLAN: ongoing resistance to closing on placement planning; ? residual AH/ no change in current meds or managemen Objective: Vital Signs Temp Pulse Resp BP Pulse Ox 36.4 C 66 17 130/71 H 93 10/14/16 05:56 10/14/16 05:56 10/14/16 05:56 10/14/16 05:56 10/14/16 05:56 ICD10 Worksheet Patient Problems: Problems Problem Status Onset Schizophrenia Acute Schizophrenia, paranoid, chronic with acute exacerbation Acute
[2016-10-16 06:49] VITALS: BP 114/57; PULSE 54; RESP 14; O2SAT 94
[2016-10-16] MEDS: DIVALPROEX ER 500 MG TAB PO SCH ×2 (08:30→21:48)
--- NOTE | 2016-10-16 15:10 | SOAPPROG ---
SOAP Progress Note Assessment/Plan: Assessment: Plan: 10/09/16 12:44 Remains psychotic in setting of medication non-compliance and substance abuse. He is willing to take meds at . Will adjust. 10/10/16 16:23 Cooperative. Psychosis stable. CCM. 10/11/16 15:45 Remains cooperative. Compliant with meds. CCM. Continue d/c planning. 10/12/16 15:26 No interval change. CCM, continue d/c planning. 10/13/16 14:30 Remains cooperative and approaching baseline. CCM. 10/16/16 15:10 Likely at baseline. Will CCM, D/c in a.m. if all is well. Subjective: Pt seen, discussed with staff. Reports feeling "normal." States he is ready to d/c to the street or to his friend's apartment. Agreeable to f/u with [facility]'s though continues to believe "they are acting against me." Remains compliant with all meds. No behavioral issues. Objective: Vital Signs Temp Pulse Resp BP Pulse Ox 36.4 C 54 L 14 114/57 L 94 10/14/16 05:56 10/16/16 06:00 10/16/16 06:00 10/16/16 06:00 10/16/16 06:00 MSE: Generally calm, pacing at times. Affect is constricted, stable. Mood is "OK." TP linear though abbreviated. TC reveals continued paucity, paranoia. Denies SI/HI/. - Time Spent With Patient Time Spent With Patient: 15" - Pending Discharge Pending Discharge Within 24 Hours: Yes Pending Discharge Date: 10/17/16 Pending Discharge Time: 11:00 ICD10 Worksheet Patient Problems: Problems Problem Status Onset Schizophrenia Acute Schizophrenia, paranoid, chronic with acute exacerbation Acute
[2016-10-16] MEDS: NICOTINE POLACRILEX 2 MG GUM B PRN (16:29)
[2016-10-16] MEDS: SERTRALINE HCL 50 MG TAB PO SCH (21:47)
[2016-10-16] MEDS: DISULFIRAM 250 MG TAB PO SCH (21:47)
[2016-10-16] MEDS: ARIPiprazole 10 MG TAB PO SCH (21:48)
[2016-10-17] MEDS: DIVALPROEX ER 500 MG TAB PO SCH (08:46)
[2016-10-17] MEDS: NICOTINE POLACRILEX 2 MG GUM B PRN (08:47)
--- NOTE | 2016-10-17 14:47 | BDS ---
[f rep st] BEHAVIORAL HEALTH DISCHARGE SUMMARY REASON FOR ADMISSION: Patient is a 31-year-old male with a history of schizoaffective dis order. He is well known to us from previous admissions and came in this time due to acute psychosis in the setting of homelessness and methamphetamine use. He had been living in an apartment for abo ut 8 months but got evicted due to drug use and other behaviors and had been homeless for about a we ek prior to admission. He had not taken his medications during that time and had used methamphetami ne on at least 1 occasion. A full description of the events preceding admission can be found in Dr. Birmingham' admission note dated 10/09/2016. ADMISSION DIAGNOSES: Per Dr. Birmingham: 1. Schizophrenia, acute exacerbation. 2. Methamphetamine use disorder, moderate. Nicotine use disorder, moderate. 3. Homelessness. 4. Chronic mental illness. ADMITTING PHYSICAL EXAMINATION: Performed by Dr. Antoni Porras revealed no acute physical findings. ADMISSION LABORATORY: CBC was normal. Serum chemistries showed a BUN up at 28, otherwise normal wi th a normal creatinine at 0.7. Liver function was normal. Urine drug screen shows positive for amp hetamines and marijuana. Depakote was less than detectable. HOSPITAL COURSE: Patient was admitted to the [facility] inpatient unit on an M1 hold. He was guarded though overall cooperative. He was much less psychotic than on previous admissions for his decompensations. He was paranoid, believing that Dr. Pichardo and [facility] were conspiring against him and did admit to hearing voices. He was agreeable to restarting his medicat ions and spent the first 3 or 4 days sleeping more than 20 hours a day. He was minimally interactiv e with others, maintaining his internal preoccupations and guarded behavior throughout his stay. At no time did he demonstrate any irritability, threatening behaviors, or hostility, however. His pre vious medications, including Depakote and Abilify, were continued as per our last record. He tolera zara these medicines well with no side effects and was compliant. He did insist they all be given at bedtime, however, due to his sense that they were sedating. From the beginning of his hospitalization, the patient voiced a desire to have some form of housing when he left the hospital. He inquired as to going to [facility], though was not accepted there d ue to his previous behaviors of leaving without permission and doing drugs. They recommended that tonya kiran go to [facility] and filled out his application. He received a PPD, which was read as negative. The application to my knowledge was completed and turned in though has to be reviewed, approved, and there is a waiting list. The patient stated that he did not want to wait that long, so he requeste d discharge to his own recognizance. He has lived most of the last 5 years homeless in [place] and felt that this was a safe circumstance for him. His psychosis has stabilized and he appeared to be ready for discharge. Appointments were made with [facility] for followup, and he was al lowed to leave. CONDITION ON DISCHARGE: Stable. His psychosis was at baseline. He was showing no aggression or ag itation and appeared to have the capacity to care for himself. DISCHARGE MEDICATIONS: Abilify 30 mg q.h.s., Antabuse 250 mg q.h.s., Depakote 1000 mg b.i.d., and Z oloft 50 mg q.h.s. DISCHARGE DIAGNOSES: 1. Schizoaffective disorder, bipolar type, chronic with acute exacerbation. 2. Homelessness. 3. Marginal supports. 4. Chronic illness. DISPOSITION: Patient left the hospital of his own recognizance. FOLLOWUP: [facility] on Sunday at 3:30 with his primary case folder. LEGAL COURSE: Patient was converted to a voluntary status at the expiration of his M1 hold. /[id number]/MODL
== END 2016-10-17 12:40 | disposition home or self-care (01) | DRG 885 ==
LOC: BBEH 10-07 17:50
PROVIDERS: ADMIT Psychiatry & Neurology Behavioral Neurology & Neuropsychiatry; ATTEND Psychiatry & Neurology Psychiatry
DX: F20.9 Schizophrenia, unspecified (principal); F90.9 Attention-deficit hyperactivity disorder, unspecified type; I10 Essential (primary) hypertension; F17.210 Nicotine dependence, cigarettes, uncomplicated; F15.20 Other stimulant dependence, uncomplicated; Z59.0 Homelessness
CPT/HCPCS: 80305; G0480

== ENCOUNTER 2016-10-28 20:39 | Emergency (ER) | payer OTHER, MEDICAID ==
[2016-10-28 21:04] VITALS: BP 162/77; PULSE 88; RESP 16; TEMP 97.9; O2SAT 96
[2016-10-28] MEDS ORDERED: IBUPROFEN 600 MG TAB PO ONE (21:32)
--- NOTE | 2016-10-28 21:34 | EDPHY ---
H & P Stated Complaint: WANTS RING CUT OFF HPI/ROS: CHIEF COMPLAINT: Rings too tight wants them cut off HISTORY OF PRESENT ILLNESS: Patient complains of multiple rings being too tight on his fingers. This started over the past day or 2. Continue to worsen. It is primarily on the left ring finger. He had 3 rings on this finger at time of presentation. Prior to my evaluation, 0 1 of the rings was cut off. Time of examination he has 1 remaining ring that is too tight for him. No numbness or tingling. No trauma. Also complains of a mild headache that has been present for 2 days. No trauma or injury. No worst headache of his life. No fever chills. No neck pain or stiffness. No other associated complaints or modifying factors. REVIEW OF SYSTEMS: Ten systems reviewed and are negative unless otherwise noted in the HPI EXAMINATION General Appearance: Alert, no distress Cardiovascular: Pulses normal throughout. Symmetric radial pulses 2+. Brisk cap refill all 10 fingers. Neurological: A&O, sensory symmetric, strength symmetric Skin: Warm and dry, no rash and mild edema of the left ring finger Extremities: Moderate tenderness of left ring finger. There are multiple rings on every finger off his to hands. The left ring finger is mildly painful but range of motion is intact. There is no cyanosis or pallor. Psychiatric: Mood and affect normal DIFFERENTIAL DIAGNOSES: Including but not limited to ring dysfunction, edema, cyanosis, construction MDM: 9:15 p.m. Two rings on the left ring finger that are causing him pain and swelling. The 1st was cut off prior to my examination. There is a 2nd 1 on the same finger that is currently being removed. He remains neurovascular intact. He does have a mild headache, for which were given some ibuprofen. Discharged home with instructions to follow up with primary care physician or return here if he encounters any further swelling. ED Precautions: Worsening pain. Erythema, edema, cyanosis, pallor, paresthesia or anesthesia. SUPERVISION: This patient was independently evaluated without direct examination by the attending physician. Case was discussed with attending physician. - Personal History Current Tetanus/Diphtheria Vaccine: Yes Current Tetanus Diphtheria and Acellular Pertussis (TDAP): Yes Tetanus Vaccine Date: 02/2012 - Medical/Surgical History Hx Asthma: No Hx Chronic Respiratory Disease: No Hx Diabetes: No Hx Cardiac Disease: No Hx Renal Disease: No Hx Cirrhosis: No Hx Alcoholism: Yes Hx HIV/AIDS: No Hx Splenectomy or Spleen Trauma: No Other PMH: Medical- schizophrenia, depression, bipolar, HTN, ADHD. COURT ORDERED MEDS - Social History Smoking Status: Heavy smoker Constitutional: Initial Vital Signs Temperature (C) 97.9 F 10/28/16 20:40 Heart Rate 88 10/28/16 20:40 Respiratory Rate 16 10/28/16 20:40 Blood Pressure 162/77 H 10/28/16 20:40 O2 Sat (%) 96 10/28/16 20:40 O2 Delivery Mode Room Air Allergies/Adverse Reactions: No Known Allergies Allergy (Verified 10/28/16 21:04) Home Medications: Medication Instructions Recorded ARIPiprazole [Abilify 10 mg (*)] 30 mg PO HS #90 tab 10/17/16 Disulfiram [Antabuse 250 MG (*)] 250 mg PO HS #30 tab 10/17/16 Divalproex ER [Depakote ER 500 MG 1,000 mg PO BID #120 tab 10/17/16 (*)] Sertraline HCl [Zoloft 50mg (*)] 50 mg PO HS #30 tab 10/17/16 Medical Decision Making - Data Points Medications Given: Discontinued Medications Ibuprofen (Motrin) 600 mg PO EDNOW ONE Stop: 10/28/16 21:33 Last Admin: 10/28/16 21:46 Dose: 600 mg Departure - Departure Disposition: Home, Routine, Self-Care Clinical Impression: Finger pain, left, Tight ring on finger Headache Qualifiers: Headache type: unspecified Headache chronicity pattern: acute headache Intractability: not intractable Qualified Code(s): R51 - Headache Condition: Good Instructions: Acute Headache (ED), Swollen Joint (ED) Additional Instructions: Follow-up with primary care physician. Return here for worsening headache, vomiting, neck pain fever Referrals: NONE *PRIMARY CARE P,. [Primary Care Provider] - As per Instructions Merrick Alarcon MD [Medical Doctor] - As per Instructions
== END 2016-10-28 21:40 | disposition home or self-care (01) ==
DX: S60.445A External constriction of left ring finger, initial encounter (principal); R51 Headache; I10 Essential (primary) hypertension; F17.200 Nicotine dependence, unspecified, uncomplicated; W49.04XA Ring or other jewelry causing external constriction, initial encounter

== ENCOUNTER 2016-11-02 10:39 | Emergency (ER) | payer OTHER, MEDICAID ==
--- NOTE | 2016-11-02 11:00 | EDPHY ---
HPI/HX/ROS/PE/MDM Narrative: CHIEF COMPLAINT: M1 Hold HPI: The patient is a 31-year-old male with history of bipolar disorder, brought in by PD on M1 hold. The patient was found outside on [address] on [address] "holding a "machete" in both hands and talking nonsensical." Patient has continued to repeat the same things multiple times stating he is bipolar and needs to be at his moms house for dinner. REVIEW OF SYSTEMS: Aside from elements discussed in the HPI, a comprehensive 10-point review of systems was reviewed and is negative. PMH: Bipolar disorder, Schizophrenia, Depression, ADHD, Hypertension, Court ordered meds. SOCIAL HISTORY: Cigarette smoker. PHYSICAL EXAM: General: Patient is alert, in no acute distress. ENT: Eyes are normal to inspection. ENT inspection normal. Neck: Normal inspection. Full range of motion. Respiratory: No respiratory distress. Breath sounds normal bilaterally. Cardiovascular: Regular rate and rhythm. Strong peripheral pulses. Abdomen: The abdomen is nontender to palpation. There are no peritoneal signs. There are normal bowel sounds. Back: Normal to inspection. No tenderness to palpation. Skin: Normal color. No rash. Warm and dry. Extremities: Normal appearance. Full range of motion. Neuro: Oriented x3. Normal motor function. Normal sensory function. (Neil Penny) ED Course: Basic lab work ordered. Plan for mental health evaluation. The patient was signed out to Dr. Pang at shift change. Awaiting mental health evaluation. (Neil Penny) [address] Pang pending mental health evaluation. 0030 patient has been seen by the mental health primary health care nurse. Patient mental status has cleared. He has an appointment later today with [facility]. He did chart picker his medicines 2 days ago. He is nina with the plan to follow up with his appointment as scheduled. Cold has been lifted by the on-call psychiatrist. Patient be discharged with this plan in place. (Sadi Guerrier) - Data Points Laboratory Results: Laboratory Results 11/02/16 11:00 11/02/16 11:00 11/02/16 10:58 Urine Opiates Screen NEGATIVE (NEGATIVE) Urine Barbiturates NEGATIVE (NEGATIVE) Ur Phencyclidine Scrn NEGATIVE (NEGATIVE) Ur Amphetamine Screen NON-NEGATIVE H (NEGATIVE) U Benzodiazepines Scrn NEGATIVE (NEGATIVE) Urine Cocaine Screen NEGATIVE (NEGATIVE) U Marijuana (THC) Screen NON-NEGATIVE H (NEGATIVE) General Time Seen by Provider: 11/02/16 10:54 Initial Vital Signs: Initial Vital Signs Temperature (C) 37.1 C 11/02/16 10:48 Heart Rate 120 H 11/02/16 10:48 Respiratory Rate 22 H 11/02/16 10:48 O2 Sat (%) 92 11/02/16 10:48 O2 Delivery Mode Room Air Allergies/Adverse Reactions: No Known Allergies Allergy (Verified 11/02/16 10:47) Home Medications: Medication Instructions Recorded ARIPiprazole [Abilify 10 mg (*)] 30 mg PO HS #90 tab 10/17/16 Disulfiram [Antabuse 250 MG (*)] 250 mg PO HS #30 tab 10/17/16 Divalproex ER [Depakote ER 500 MG 1,000 mg PO BID #120 tab 10/17/16 (*)] Sertraline HCl [Zoloft 50mg (*)] 50 mg PO HS #30 tab 10/17/16 Departure - Departure Disposition: Home, Routine, Self-Care Clinical Impression: Schizophrenia Condition: Fair Instructions: Schizophrenia (ED) Additional Instructions: Follow up with your point with [facility] as scheduled later today. Referrals: [facility] [Outside] - As per Instructions Report Scribed for: Neil Penny Report Scribed by: Mis Saldaña Date of Report: 11/02/16 Time of Report: 11:00 Physician Review and Approval Statement: Portions of this note were transcribed by a medical clerk. I personally performed a history, physical exam, medical decision making, and confirmed accuracy of information the transcribed note.
[2016-11-02 11:29] LABS: % IMMATURE GRANULYOCYTES 0.1 % (0.0-1.1); ABSOLUTE IMMATURE GRANULOCYTES 0.01 10^3/uL (0.00-0.10); ADD DIFF? NO; ADD MORPH? NO; ADD SCAN? NO; ATYPICAL LYMPHOCYTE FLAG 0 (0-99); FRAGMENT RBC FLAG 0 (0-99); HEMATOCRIT 48.4 % (40.0-51.0); HEMOGLOBIN 16.5 g/dL (13.7-17.5); LEFT SHIFT FLG 0 (0-99); LIPEMIA HEMOLYSIS FLAG 90 (0-99); MEAN CELL HEMOGLOBIN CONCENTR. 34.1 g/dL (32.4-36.7); MEAN CELL VOLUME 90.8 fL (81.5-99.8); MEAN PLATELET VOLUME 10.6 fL (8.7-11.7); PLATELET CLUMPS FLAG 0 (0-99); PLATELET COUNT 230 10^3/uL (150-400); RED BLOOD CELL COUNT 5.33 10^6/uL (4.40-6.38); RED CELL DISTRIBUTION WIDTH 13.1 % (11.5-15.2)
[2016-11-02 11:50] LABS: ANION GAP 15 mEq/L (8-16); CALCIUM 10.2 mg/dL (8.5-10.4); CARBON DIOXIDE 21 mEq/l (22-31); CHLORIDE 107 mEq/L (97-110); CREATININE 0.8 mg/dL (0.7-1.3); ETHANOL SERUM < 10 mg/dL (0-10); GLOMERULAR FILTRATION RATE > 60; GLUCOSE 93 mg/dL (70-100); POTASSIUM 4.1 mEq/L (3.5-5.2); SODIUM 143 mEq/L (134-144)
[2016-11-02] MEDS ORDERED: DIVALPROEX ER 500 MG TAB PO SCH (15:00)
[2016-11-02 23:40] VITALS: RESP 18; TEMP 97.9
[2016-11-03 00:41] VITALS: BP 109/54; PULSE 68; O2SAT 95
== END 2016-11-03 00:40 | disposition home or self-care (01) ==
DX: F20.9 Schizophrenia, unspecified (principal); F17.210 Nicotine dependence, cigarettes, uncomplicated; I10 Essential (primary) hypertension
CPT/HCPCS: 80305; G0480

== ENCOUNTER 2017-01-18 17:20 | Emergency (ER) | payer OTHER, MEDICAID ==
[2017-01-18 17:26] VITALS: BP 113/66; PULSE 102; RESP 18; TEMP 99; O2SAT 92
== END 2017-01-18 21:13 | disposition left against medical advice (07) ==
LOC: EDUNIT#
DX: Z53.21 Procedure and treatment not carried out due to patient leaving prior to being seen by health care provider (principal)

== ENCOUNTER 2017-01-18 22:00 | Emergency (ER) | payer OTHER, MEDICAID ==
[2017-01-18] MEDS ORDERED: SULFAMETHOX/TMP 800/160 MG 1 TAB PO ONE (22:08)
[2017-01-18] MEDS ORDERED: CEPHALEXIN 500 MG CAP PO ONE (22:08)
--- NOTE | 2017-01-18 22:11 | EDPHY ---
H & P Time Seen by Provider: 01/18/17 22:05 HPI/ROS: CHIEF COMPLAINT: Rash HISTORY OF PRESENT ILLNESS: The patient is a 31-year-old homeless man who comes to the emergency department complaining of a rash to his right neck. He has not had a fever. He does not know when it began. He has not had a fever. It is no where else in his body. He is dirty and covered in vomit. I asked if he is able to clean himself and if he has a home and he states "that is a personal question ". REVIEW OF SYSTEMS: Constitutional: denies: chills, fever, recent illness, recent injury EENTM: denies: blurred vision, double vision, nose congestion Respiratory: denies: cough, shortness of breath Cardiac: denies: chest pain, irregular heart rate, lightheadedness, palpitations Gastrointestinal/Abdominal: denies: abdominal pain, diarrhea, nausea, vomiting, blood streaked stools Genitourinary: denies: dysuria, frequency, hematuria, pain Musculoskeletal: denies: joint pain, muscle pain Skin: See HPI Neurological: denies: headache, numbness, paresthesia, tingling, dizziness, weakness Hematologic/Lymphatic: denies: blood clots, easy bleeding, easy bruising Immunologic/allergic: denies: HIV/AIDS, transplant EXAM: GENERAL: Well-appearing, well-nourished and in no acute distress. HEAD: Atraumatic, normocephalic. EYES: Pupils equal round and reactive to light, extraocular movements intact, sclera anicteric, conjunctiva are normal. ENT: No difficulty breathing, TMs normal, nares patent, oropharynx clear without exudates. Moist mucous membranes. NECK: Normal range of motion, supple without lymphadenopathy or JVD. LUNGS: Breath sounds clear to auscultation bilaterally and equal. No wheezes rales or rhonchi. HEART: Regular rate and rhythm without murmurs, rubs or gallops. ABDOMEN: Soft, nontender, normoactive bowel sounds. No guarding, no rebound. No masses appreciated. BACK: No CVA tenderness, no spinal tenderness, step-offs or deformities EXTREMITIES: Normal range of motion, no pitting or edema. No clubbing or cyanosis. NEUROLOGICAL: Cranial nerves II through XII grossly intact. Normal speech, normal gait. 09/08 strength, normal movement in all extremities, normal sensation PSYCH: Normal mood, normal affect. SKIN: Mild cellulitis to right neck. Irritated by necklace patient is wearing but he will not remove it. Minimal warmth. No fluctuance or abscess. Source: Patient Exam Limitations: No limitations - Personal History Tetanus Vaccine Date: 02/2012 - Medical/Surgical History Hx Asthma: No Hx Chronic Respiratory Disease: No Hx Diabetes: No Hx Cardiac Disease: No Hx Renal Disease: No Hx Cirrhosis: No Hx Alcoholism: Yes Hx HIV/AIDS: No Hx Splenectomy or Spleen Trauma: No Other PMH: Medical- schizophrenia, depression, bipolar, HTN, ADHD. COURT ORDERED MEDS - Family History Significant Family History: No pertinent family hx - Social History Smoking Status: Heavy smoker Alcohol Use: Sober Drug Use: None Constitutional: Initial Vital Signs Temperature (C) 36.8 C 01/18/17 22:11 Heart Rate 77 01/18/17 22:11 Respiratory Rate 16 01/18/17 22:11 Blood Pressure 114/71 01/18/17 22:11 O2 Sat (%) 93 01/18/17 22:11 O2 Delivery Mode Room Air Allergies/Adverse Reactions: No Known Allergies Allergy (Verified 01/18/17 22:06) Home Medications: Medication Instructions Recorded ARIPiprazole [Abilify 10 mg (*)] 30 mg PO HS #90 tab 10/17/16 Disulfiram [Antabuse 250 MG (*)] 250 mg PO HS #30 tab 10/17/16 Divalproex ER [Depakote ER 500 MG 1,000 mg PO BID #120 tab 10/17/16 (*)] Sertraline HCl [Zoloft 50mg (*)] 50 mg PO HS #30 tab 10/17/16 Cephalexin [Keflex] 500 mg PO TID #21 cap 01/18/17 Sulfamethox/Tmp 800/160 mg 1 tab PO BID #14 tab 01/18/17 [Bactrim Ds] Medical Decision Making ED Course/Re-evaluation: The patient appears to have early cellulitis. I will start him on Bactrim and Keflex. No sign of abscess. He is not toxic-appearing. I advised him to keep the area clean and dry. He understands. Differential Diagnosis: Partial list of the Differential diagnosis considered include but were not limited to; cellulitis, abscess, yeast infection and although unlikely based on the history and physical exam, I also considered vascular injury, allergic reaction. I discussed these differential diagnoses and the plan with the patient as well as the usual and expected course. The patient understands that the diagnosis is provisional and that in medicine we are not always correct and that further workup is often warranted. Usual and customary warnings were given. All of the patient's questions were answered. The patient was instructed to return to the emergency department should the symptoms at all worsen or return, otherwise to followup with the physician as we discussed. - Data Points Medications Given: Discontinued Medications Cephalexin HCl (Keflex) 500 mg PO EDNOW ONE PRN Reason: Protocol Stop: 01/18/17 22:09 Last Admin: 01/18/17 22:21 Dose: 500 mg Trimethoprim/Sulfamethoxazole (Bactrim Ds) 1 ea PO EDNOW ONE PRN Reason: Protocol Stop: 01/18/17 22:09 Last Admin: 01/18/17 22:21 Dose: 1 ea Departure - Departure Disposition: Home, Routine, Self-Care Clinical Impression: Cellulitis Qualifiers: Site of cellulitis: unspecified site Qualified Code(s): L03.90 - Cellulitis, unspecified Condition: Fair Instructions: Cellulitis (ED) Referrals: NONE *PRIMARY CARE P,. [Primary Care Provider] - As per Instructions [facility],. [Clinic] - As per Instructions Prescriptions: Cephalexin [Keflex] 500 mg PO TID #21 cap Sulfamethox/Tmp 800/160 mg [Bactrim Ds] 1 tab PO BID #14 tab
[2017-01-18 22:13] VITALS: RESP 16; TEMP 98.2
[2017-01-18 22:24] VITALS: BP 121/74; PULSE 74; O2SAT 96
== END 2017-01-18 22:35 | disposition home or self-care (01) ==
LOC: EDUNIT#
DX: L03.221 Cellulitis of neck (principal); I10 Essential (primary) hypertension; F17.200 Nicotine dependence, unspecified, uncomplicated

== ENCOUNTER 2017-02-08 13:17 | Emergency (ER) | payer OTHER, MEDICAID ==
[2017-02-08 13:23] VITALS: O2SAT 94
--- NOTE | 2017-02-08 14:44 | EDPHY ---
H & P Time Seen by Provider: 02/08/17 14:06 HPI/ROS: CHIEF COMPLAINT: Medical screening for incarceration HISTORY OF PRESENT ILLNESS: 31-year-old male in the ER for medical screening for incarceration. Specifically, per documentation from the [facility] nurse she wanted the emergency department to evaluate wounds on his posterior neck and left calf. Patient states that he has been itching these areas. He denies trauma. States he has a history of itching and picking at his skin. He denies suicidal or homicidal ideation. He denies suicide attempt. Tetanus is up-to- date PHYSICAL EXAM (Prior to examination, patient consented to physical exam, hands were washed and my usual and customary physical exam procedures followed) 1) GENERAL: foul-smelling, poorly kept, dirty. Appears to be in no acute distress. 2) HEAD: Normocephalic 3) HEENT: sclera anicteric 4) LUNGS: Breathing comfortably. 5) SKIN: posterior neck patient has an area of excoriation measuring 3 cm x 3 cm with no evidence of cellulitis/infection. The patient's left calf he has a 4 cm x 4 cm area of excoriation with signs of early infection. No lymphangitic streaking. Soft compartments. Distal neurovascular status is normal. He has a other multiple areas where he has been picking however they do not appear infected. Smoking Status: Heavy smoker Constitutional: Initial Vital Signs Temperature (C) 36.5 C 02/08/17 13:21 Heart Rate 89 02/08/17 13:21 Respiratory Rate 17 02/08/17 13:21 Blood Pressure 132/90 H 02/08/17 13:21 O2 Sat (%) 94 02/08/17 13:21 O2 Delivery Mode Room Air Allergies/Adverse Reactions: No Known Allergies Allergy (Verified 01/18/17 22:06) Home Medications: Medication Instructions Recorded ARIPiprazole [Abilify 10 mg (*)] 30 mg PO HS #90 tab 10/17/16 Disulfiram [Antabuse 250 MG (*)] 250 mg PO HS #30 tab 10/17/16 Divalproex ER [Depakote ER 500 MG 1,000 mg PO BID #120 tab 10/17/16 (*)] Sertraline HCl [Zoloft 50mg (*)] 50 mg PO HS #30 tab 10/17/16 Cephalexin [Keflex] 500 mg PO TID #21 cap 01/18/17 Sulfamethox/Tmp 800/160 mg 1 tab PO BID #14 tab 01/18/17 [Bactrim Ds] Cephalexin [Keflex] 500 mg PO TID 7 Days cap 02/08/17 Sulfamethox/Tmp 800/160 mg 1 tab PO BID@1000,2200 10 Days tab 02/08/17 [Bactrim Ds] MDM/Departure - [facility] ED Course/Re-evaluation: The excoriated areas to his posterior neck and left distal calf have been dressed with antibiotic ointment. The excoriated area on left calf does have evidence of early infection, doubt DVT, doubt abscess, doubt necrotizing fasciitis. He has been started on oral antibiotic. I do not think that hospitalization or diagnostic studies are indicated at this time. He otherwise has no signs of infection to his wounds.Care of patient under supervision of primary supervising physician Dr Groves . - Depart Disposition: Law Enforcement/Court/[facility] Clinical Impression: Excoriation, Wound infection Condition: Good Instructions: Wound Infection (ED) Additional Instructions: Please do not itch the wounds. Take medication as directed on the instructions. Prescriptions: Cephalexin [Keflex] 500 mg PO TID 7 Days cap Sulfamethox/Tmp 800/160 mg [Bactrim Ds] 1 tab PO BID@1000,2200 10 Days tab Referrals: Follow-up, with the [facility] nurse in 1 day [Other] - As per Instructions
[2017-02-08 15:00] VITALS: BP 123/73; PULSE 106; RESP 16; TEMP 98.1
== END 2017-02-08 15:17 ==
DX: T81.4XXA Infection following a procedure, initial encounter (principal); L98.1 Factitial dermatitis; F17.200 Nicotine dependence, unspecified, uncomplicated; Y82.8 Other medical devices associated with adverse incidents

== ENCOUNTER 2017-03-08 14:58 | Inpatient (IN) | payer OTHER, MEDICAID ==
--- NOTE | 2017-03-08 15:42 | EDPHY ---
H & P Smoking Status: Heavy smoker Time Seen by Provider: 03/08/17 15:31 HPI/ROS: CHIEF COMPLAINT: Suicidal ideation and overdose HISTORY OF PRESENT ILLNESS: Patient was schizophrenia with recent psychiatric hospitalization presents to the ED because his father driven here. The patient tells me took "half a bottle of Tylenol "at 2:00 p.m. an attempt to kill himself. He then called his father brought into the ED. The patient does say that he took 15 Tylenol pills. He tells me took the bus to [place] and this happened at the restaurant but he has been alone by himself all day and there is no body to independently verify this ingestion or the time of ingestion if it did take place. REVIEW OF SYSTEMS: Eye: no change in vision ENT: no sore throat Cardiac: no chest pain or syncope Pulmonary: no cough or SOB Abdomen: no vomiting, diarrhea, abdominal pain Musculoskeletal: no back pain Skin: Multiple areas of blister and skin rash on the right leg Neuro: no headache Constitutional: no fever : no urinary symptoms A comprehensive 10 point review of systems is otherwise negative aside from elements mentioned in the history of present illness. PAST MEDICAL HISTORY: Schizophrenia and hypertension Social history: Patient was brought here by his father, denies alcohol General Appearance: Alert and conversant, cooperative. Eyes: No scleral icterus. ENT, Mouth: Normal mucous membranes. Respiratory: Normal respiratory effort, breath sounds equal, lungs are clear to auscultation. Cardiovascular: Regular rate and rhythm. Gastrointestinal: Abdomen is soft and non tender. Neurological: Alert and oriented x3. Normally conversant. Face symmetric, normal movement and sensation in all extremities. Skin: Areas of blister and excoriation on the right leg without evidence of cellulitis. A blister 1 cm diameter on the dorsal surface of the proximal right thumb without cellulitis, normal range of motion of all fingers. Musculoskeletal: No peripheral edema and no joint swelling. Psychiatric: Flat affect, admits to suicidal ideation, denies hallucinations. Emergency Department course/MDM: Patient was placed on a mental health hold by myself at 3:44 p.m. suicidal ideation with overdose. Plan for labs to include protime and acetaminophen level and aspirin level, LFTs. 1623: Acetaminophen level is 0, plan for repeat acetaminophen level at 1800, if negative then is medically cleared for psychiatric evaluation after appropriate ED waiting period for amphetamine positive in his urine tox. 1827: The patient had a medical screening evaluation performed. The 4 hour Tylenol level is nondetectable. There does not appear to be an acute emergent medical or surgical condition which would preclude psychiatric evaluation at this time. Mental health evaluation is requested at this time. 220: Signed out to Obdulio with psych evaluation pending. (Evaristo Lehman) Constitutional: Initial Vital Signs Temperature (C) 36.8 C 03/08/17 15:05 Heart Rate 72 03/08/17 15:05 Respiratory Rate 16 03/08/17 15:05 Blood Pressure 140/86 H 03/08/17 15:05 O2 Sat (%) 98 03/08/17 15:05 O2 Delivery Mode Room Air Allergies/Adverse Reactions: No Known Allergies Allergy (Verified 03/08/17 15:04) Home Medications: Medication Instructions Recorded ARIPiprazole [Abilify 10 mg (*)] 30 mg PO HS #90 tab 10/17/16 Disulfiram [Antabuse 250 MG (*)] 250 mg PO HS #30 tab 10/17/16 Divalproex ER [Depakote ER 500 MG 1,000 mg PO BID #120 tab 10/17/16 (*)] Sertraline HCl [Zoloft 50mg (*)] 50 mg PO HS #30 tab 10/17/16 Cephalexin [Keflex] 500 mg PO TID #21 cap 01/18/17 Sulfamethox/Tmp 800/160 mg 1 tab PO BID #14 tab 01/18/17 [Bactrim Ds] Cephalexin [Keflex] 500 mg PO TID 7 Days cap 02/08/17 Sulfamethox/Tmp 800/160 mg 1 tab PO BID@1000,2200 10 Days tab 02/08/17 [Bactrim Ds] Medical Decision Making - Diagnostics EKG Interpretation: 12-lead EKG interpreted by me; official reading is in trace master. My interpretation is sinus rhythm rate 77 normal intervals, performed for toxic ingestion. (Evaristo Lehman) ED Course/Re-evaluation: 615: No acute events overnight patient has been sleeping. On M1 hold for suicidal ideation. Still needs mental health evaluation. Signed over to Dr. Lee. (Yoni Byrd) 7:00 a.m.-I assumed care of this patient at shift change. He will be reassessed by mental health this morning. 11:15 a.m.-this patient has been accepted to [address] [place] [address] Silva[address] (Cherelle Lee) Differential Diagnosis: Differential diagnosis considered for depression including functional and major depression, situational depression, medication side effect, drugs and alcohol abuse. (Evaristo Lehman) - Data Points Laboratory Results: Laboratory Results 03/08/17 15:33 03/08/17 15:33 Departure - Departure Disposition: [facility] IP Clinical Impression: Polysubstance abuse Schizophrenia Qualifiers: Schizophrenia type: unspecified Qualified Code(s): F20.9 - Schizophrenia, unspecified Condition: Good Referrals: NONE *PRIMARY CARE P,. [Primary Care Provider] - As per Instructions
[2017-03-08 15:47] LABS: PLATELET COUNT 279 10^3/uL (150-400)
[2017-03-08 15:54] LABS: INR 0.91 (0.83-1.16); PROTIME(PATIENT) 12.2 SEC (12.0-15.0)
--- NOTE | 2017-03-08 16:04 | CPEKG ---
Heart Rate: 77 RR Interval: 779 P-R Interval: 180 QRSD Interval: 96 QT Interval: 384 QTC Interval: 435 P [place]: 45 QRS [place]: 65 T Wave [place]: 37 EKG Severity - NORMAL ECG - EKG Impression: SINUS RHYTHM Electronically Signed By: Evaristo Lehman 08-Mar-2017 16:09:06
--- NOTE | 2017-03-08 16:04 | CPEKG ---
Heart Rate: 77 RR Interval: 779 P-R Interval: 180 QRSD Interval: 96 QT Interval: 384 QTC Interval: 435 P [place]: 45 QRS [place]: 65 T Wave [place]: 37 EKG Severity - NORMAL ECG - EKG Impression: SINUS RHYTHM Electronically Signed By: Evaristo eLhman 08-Mar-2017 16:09:06
[2017-03-09] MEDS ORDERED: ACETAMINOPHEN 325 MG TAB PO PRN (15:58)
[2017-03-09] MEDS ORDERED: MAGNESIUM HYDROXIDE 30 ML UDCUP PO PRN (15:58)
[2017-03-09] MEDS ORDERED: MAG HYDROX/AL HYDROX/SIMETH 30 ML UDCUP PO PRN (15:58)
[2017-03-09] MEDS ORDERED: NICOTINE POLACRILEX 2 MG GUM B PRN (15:58)
[2017-03-09] MEDS ORDERED: OLANZapine DISINTEGR 10 MG TAB PO PRN (16:02)
[2017-03-09] MEDS: ARIPiprazole 10 MG TAB PO SCH (17:04)
[2017-03-09] MEDS: DIVALPROEX ER 500 MG TAB PO SCH (21:24)
--- NOTE | 2017-03-10 08:37 | GCON ---
[f rep st] CONSULTATION DATE OF CONSULTATION: 03/10/2017 REASON FOR CONSULTATION: Medical management. HISTORY OF PRESENT ILLNESS: A 32-year-old male with history of schizoaffective bipolar type, hyperte nsion, depression, who presented to the ER 03/08/2017, after ingesting Tylenol. States he took 15 pi lls. Denies any other pills or drugs. States he was trying to kill himself because he was more depr essed. He denies any recent stressful events or factors that contributed to this. He was hospitalized in October 2016, after being off his psychiatric medications. No fevers, chills, or sweats. No nausea, vomiting, diarrhea. No abdominal pain. No chest pain or s hortness of breath. REVIEW OF SYSTEMS: I completed a 10-point review of systems, negative except as noted in HPI. PAST MEDICAL HISTORY: Hypertension, schizoaffective bipolar type, polysubstance abuse, methamphetami ne, THC, tobacco abuse, depression, attention deficit hyperactivity disorder. PAST SURGICAL HISTORY: None. FAMILY HISTORY: No coronary artery disease. Psychiatric illness per patient. MEDICATIONS: Depakote, Zoloft, Abilify, fish oil. ALLERGIES: No known drug allergies. SOCIAL HISTORY: Lives in [place] with his mother. Father lives in [place]. Smokes a half a pack a day of cigarettes. Would not discuss alcohol or drug use. PHYSICAL EXAMINATION: VITAL SIGNS: Temperature 36.9, blood pressure 128/78, heart rate 70s, respira tions 12, 97% on room air. GENERAL: Lying in bed, sleeping, no acute distress. HEENT: PERRLA. EOMI. Oropharynx clear. CV: Regular rate and rhythm. No murmurs, gallops, rubs. LUNGS: Clear to ausc ultation. ABDOMEN: Soft, nondistended. No tenderness to palpation. Positive bowel sounds. : N o Reid. MUSCULOSKELETAL: Moving all 4 extremities. SKIN: Multiple excoriated lesions on upper ext remities. NEURO: 2 intact. PSYCH: Alert and oriented x3. Very flat affect. Depressed. LABORATORY DATA: From 03/08/2017, WBC 6.9, hemoglobin 14, hematocrit 42, platelets 279. Coags withi n normal. Sodium 141, potassium 4.1, chloride 107, carbon dioxide 24, creatinine 0.6. LFTs within n ormal. Total protein 6.2, albumin 3.4. A U-tox positive for amphetamines, marijuana, negative Tylen ol and salicylates. ASSESSMENT/PLAN: 1. Suicidal ideation and attempt: Ingested Tylenol. LFTs and Tylenol levels were negative. 2. Schizoaffective disorder, per Behavioral Health team. 3. Hypertension, not treated. Blood pressure is stable here. 4. Depression, again, per Behavioral Health team. 5. Polysubstance abuse: Patient will not discuss. 6. Tobacco abuse, nicotine patch. DIET: Regular. DVT prophylaxis, low risk. Thank you for this consultation. Please call if any questions. /[id number]/MODL
[2017-03-10] MEDS: DIVALPROEX ER 500 MG TAB PO SCH ×2 (09:12→20:26)
[2017-03-10] MEDS: ARIPiprazole 10 MG TAB PO SCH (09:12)
[2017-03-10] MEDS: SERTRALINE HCL 50 MG TAB PO SCH (09:12)
[2017-03-10] MEDS: OMEGA-3 FATTY ACIDS 1,000 MG CAP PO SCH (09:13)
[2017-03-10] MEDS ORDERED: FLU VACC QS 2017-18 (3YR+)/PF 0.5 ML SYR (FLUARIX QUAD) IM ONE (20:28)
[2017-03-11] MEDS: SERTRALINE HCL 50 MG TAB PO SCH (09:08)
[2017-03-11] MEDS: ARIPiprazole 10 MG TAB PO SCH (09:08)
[2017-03-11] MEDS: DIVALPROEX ER 500 MG TAB PO SCH ×2 (09:09→22:08)
[2017-03-11] MEDS: OMEGA-3 FATTY ACIDS 1,000 MG CAP PO SCH (09:09)
--- NOTE | 2017-03-11 10:31 | SOAPPROG ---
SOAP Progress Note Assessment/Plan: Assessment: 32yo with hx of Schizoaffective d/o, amphet/THC use, and noncompliance, admitted after reporting +SI in context of incr paranoia and recent legal charges 03/11/17 10:08 per staff, slept 9hr. staff reports pt has been paranoid, hostile at times. was allowed 1 ring to wear (others being kept in safe) which he insists helps decr AH. staff knows pt from prior admits, note he is less decompensated presently than has been on past admissions. no new complaints. slept well. denies physical complaints or any medication s/ e. taking meds as Rxd. more calm on interaction, less anxious, not bouncing knee as before but with slight BUE tremor on extension. not bothersome or noticeable to pt. volunteers that he suffers "from claustrophobia...and ADHD, can I get something for that?...Adderall?" states was taken off this med 4yr ago which is why he couldn't finish college. denied any SI/HI currently. still reporting AH/VH "over there" (points to ground where he alleges seeing "the rat"). Feels hallucinations better, "at least I haven't attacked the rat". Did not appear genuinely seeing a rat and did not otherwise appear responding to internal stimuli. Still with delusional thoughts, and becoming easily irritable when remembering about court date 03/15, and insisting he needed to stay in hospital for a very long time. PLAN: -cont current meds as were reported to be pt home meds. -add VPA to labs drawn 03/08 if still avail in lab. (to check for outpt compliance on admit). -check VPA 11/7 AM -discussed options for M-1 expiring today, including to sign in voluntarily, be discharged, or be placed on STC for up to 90d. informed of right to atty, legal rights, 3rd constitution party representation. Informed pt he would be placed on STC given his continued psychotic state, lability and impaired insight, also history of noncompliance. pt responded, "that's better anyway". Objective: Vital Signs Temp Pulse Resp BP Pulse Ox 36.9 C 71 12 128/78 H 97 03/10/17 00:30 03/10/17 00:30 03/10/17 00:30 03/10/17 00:30 03/10/17 00:30 PT 12.2 SEC (12.0-15.0) 03/08/17 15:33 INR 0.91 (0.83-1.16) 03/08/17 15:33 Medications Generic Name Dose Route Start Last Admin Trade Name Freq PRN Reason Stop Dose Admin Sertraline HCl 50 mg 03/10/17 09:00 03/10/17 09:12 Zoloft PO 09/06/17 08:59 50 mg DAILY SID Aripiprazole 30 mg 03/09/17 16:15 03/10/17 09:12 Abilify PO 09/05/17 16:14 30 mg DAILY SID Divalproex Sodium 1,000 mg 03/09/17 21:00 03/10/17 20:26 Depakote Er PO 09/05/17 20:59 1,000 mg BID SID Lorazepam 1 - 2 mg 03/09/17 15:58 Ativan PO 09/05/17 15:57 Q6HRS PRN Anxiety, Able to Take PO Olanzapine 10 mg 03/09/17 16:02 Zyprexa Zydis PO 09/05/17 17:59 Q4 PRN Agitation, Psychosis Glnih-3-Ckra Ethyl Esters 1,000 mg 03/10/17 09:00 03/10/17 09:13 Fish Oil PO 09/06/17 08:59 1,000 mg DAILY SID Aripiprazole 30 mg 03/09/17 16:15 03/11/17 09:08 Abilify PO 09/05/17 16:14 30 mg DAILY SID Divalproex Sodium 1,000 mg 03/09/17 21:00 03/11/17 09:09 Depakote Er PO 09/05/17 20:59 1,000 mg BID SID Sertraline HCl 50 mg 03/10/17 09:00 03/11/17 09:08 Zoloft PO 09/06/17 08:59 50 mg DAILY SID Lumoz-4-Miyd Ethyl Esters 1,000 mg 03/10/17 09:00 03/11/17 09:09 Fish Oil PO 09/06/17 08:59 1,000 mg DAILY SID - Time Spent With Patient Time Spent With Patient: 25min - Pending Discharge Pending Discharge Within 24 Hours: No Pending Discharge Within 48 Hours: No ICD10 Worksheet Patient Problems: Problems Problem Status Onset Polysubstance abuse Acute Schizophrenia Acute Cellulitis Acute Schizophrenia, paranoid, chronic with acute exacerbation Acute
[2017-03-11] MEDS ORDERED: FLU VACC QS 2017-18 (3YR+)/PF 0.5 ML SYR (FLUARIX QUAD) IM ONE (11:16)
--- NOTE | 2017-03-12 01:27 | BAPA ---
[f rep st] ADMISSION PSYCHIATRIC ASSESSMENT /[id number]/MODL MTDD
--- NOTE | 2017-03-12 01:27 | BAPA ---
[f rep st] ADMISSION PSYCHIATRIC ASSESSMENT /[id number]/MODL MTDD
--- NOTE | 2017-03-12 01:27 | BAPA ---
[f rep st] ADMISSION PSYCHIATRIC ASSESSMENT /[id number]/MODL MTDD
--- NOTE | 2017-03-12 01:52 | BAPA ---
[f rep st] ADMISSION PSYCHIATRIC ASSESSMENT DATE OF SERVICE: 03/10/2017 CHIEF COMPLAINT: "This is the best decision for me right now ... I found this backpack on the ground, they're trying to accuse me robbing a business ... I need my rings to help control my voices." HISTORY OF PRESENT ILLNESS: The patient is a 32-year-old single, homeless male with a long history of schizoaffective disorder, also substance use (methamphetamines and THC), who presented to the ED accompanied by his father after he called his father and told him he took a half bottle of Tylenol on 03/08/2017 in attempt to kill himself. Patient reported to ED provider he took 15 Tylenol pills after taking a bus to [employer]. The ED physician placed the patient on an M1 hold for suicidal ideation, as patient continued to report suicidality. He was medically cleared with no evidence of any Tylenol ingestion. Patient perseverated on needing to get his court date changed, which was set for 03/15/2017. "I'm pleading not guilty ... I just find stuff on the ground and they're trying to accuse me of robbing a business." He reports regarding the Tylenol "I had a couple of pills," which was different than he told ED provider. He did admit, "I go to the hospital whenever I try to kill myself, I don't want to kill myself because I want to talk to my dad, who is the greatest parent ever ... I need to be here at least a month or I will kill myself, I want to go to a mental institution but not [facility]." He then became increasingly anxious as he related his legal concerns and his need to be institutionalized. It was noted he became increasingly disorganized in his thoughts and more perseverative as his anxiety increased, requiring redirection. Patient insisted he needed to be in a mental institution "for life because I'll do a lot of bad things if I'm not." He requests just not to go to [facility], which he heard a lot of bad things about, nor [facility]. "I'll plead insanity." The patient believed he was being charged for robbing a business, stating he found a backpack full of money. However, reportedly he was only ticketed for trespassing or sleeping on a park bench; this was not clear. He endorsed auditory hallucinations and visual hallucinations "of a damn rat that tries to bite me, it's on my head trying to censor me and tell me to kill myself ... the rat is always there." Patient points to the ground. He then looked briefly to the left eye, stating "my eyes just moved, because the rat bit my eye." He feels frustrated that he has to keep throwing rocks at a fake hallucination and finds himself often chasing the rat, although adds that "I like the rat." He reports difficulty sleeping because of paranoia. He denied predominantly feeling depressed, and denied any feelings of anxiety, "I don't have anxiety, it's just a cobra wagging its tail." He was guarded with providing any information regarding his history of substance use and became more irritable around this topic, so collateral was obtained from [facility] report. It did seem that his right thumb had an old cigarette burn or perhaps from smoking something, he stated "that's from space, I didn't do it." Of note, ED urine tox screen was positive for amphetamines and marijuana. He reported psychiatric medication compliance, but this was unclear. He denied any side effects to medications as prescribed on an outpatient basis, although stated he did not like the Invega Trinza q.90 days, not sure when it is due again, thinks he last received it a couple of months ago. After reporting medication compliance and stating that some of his medications work "for my schizophrenia, " he then added "I believe I've gone psychotic ... I lost my pills for 2 weeks in a row." Patient does endorse feeling depressed and having auditory hallucinations telling him to kill himself, maintaining he would kill himself if discharged or hospitalized less than 30 days and then not sent to a mental institution for life. PAST PSYCHIATRIC HISTORY: Patient has had numerous previous inpatient hospitalizations, [address] since March 2010, most recently October 2016. He has also been hospitalized several times since age 16, around 3 admissions per year. He is an active client with [facility], outpatient psychiatrist was Dr. Bret Pichardo and also sees [facility]. He has a history of medication noncompliance. CURRENT HOME MEDICATIONS: Abilify 30 mg p.o. q.a.m., Antabuse 250 mg q.a.m., Depakote ER 2000 mg p.o. q.a.m., Invega Trinza 819 mg/2.625 mL syringe IM every 90 days, Lovaza 2 g p.o. q.a.m., Zoloft 50 mg p.o. q.a.m. ALLERGIES: No known medical allergies. PAST MEDICAL/SURGICAL HISTORY: No acute medical issues. Patient reports feeling chronically fatigued. He is overweight. SUBSTANCE USE HISTORY: Review of EDM indicates several ER presentations with positive U-tox for amphetamines and marijuana. He refused to discuss any substance use history. SOCIAL HISTORY: Patient is single. Never . No children. Parents both living but are , father resides in [place], [place] with stepmother, mother resides in [place]. Patient grew up in [place]. He has been homeless since losing housing in October 2016. Little/minimal social support. Family is supportive and did visit patient his first day on the inpatient unit. Patient did graduate high school and attended college for 2 years. He has been on disability for "schizophrenia, depression, bipolar, and hopefully a sleeping disorder." He notes that he would like to be evaluated and diagnosed with a sleeping disorder, although states he does not have sleep apnea since this was checked by screening during his last hospitalization. LEGAL HISTORY: Patient does have a history of unspecified aggression towards others and a history of incarcerations. He refused to elaborate and became guarded around providing any such information, maintaining consistently that he has no thoughts to harm others. This information was per [facility] report. Patient believes he has a court date pending for 03/15/2017. This will need to be clarified since it is reportedly for a ticket for trespassing. The patient believes it may be more significant with a charge related to robbing a business , which may be delusional in nature. MENTAL STATUS EXAMINATION: On admission, patient was able to sit throughout most of the interview, although with bouncing left knee and some mild increased psychomotor activity and hypervigilance. He was unshaved with almeida slightly disheveled, casually dressed, obese with [employer] jersey. Speech was articulate but slightly increase rate, with volume increasing depending on level of anxiety and mild agitation. Mood was depressed and anxious, affect was anxious and hypomanic, also seemed somewhat hypervigilant. Thought processes were perseverative on legal concerns and paranoid delusional thoughts around a rat communicating with him, thoughts were guarded around information related to substance use. History provided was inconsistent and unreliable regarding outpatient treatment compliance. Thought process was also notable for becoming increasingly paranoid and delusional in content as his anxiety level increased, he was re-directable for short periods of time. Patient did ultimately request to terminate interview, feeling he had provided enough information. He was unkempt with dirty fingernails wearing a cap with a knit hat over this, [facility] He denied any current suicidal ideation but reported he definitely would harm himself if we released him presently or any time in the near future. He denied any homicidal ideation, adding "I don't want to talk about the legal stuff because I don't want to be the man without a di*k." (patient was referring to his history of violence when asked about this). He reported he could be safe on the unit and not attempt to harm himself or anyone else or can talk with the staff if feeling agitated or unsafe or unable to maintain safety. He did endorse chronic auditory hallucinations with visual hallucinations, attributing his symptoms to a rat which is persistently present, although he did not appear genuinely responding to internal stimuli. Insight impaired. Judgment poor. Cognition conversationally intact. IMPRESSION: 32-year-old single, homeless male with a long history of schizoaffective disorder, on disability for mental illness, with history of substance use, presenting to the ED alleging suicide attempts but with no objective evidence of Tylenol ingestion, rather with a positive urine tox of amphetamine and THC. He does have a long history of noncompliance with psychiatric treatment, although remains active with [facility], it seems has not been compliant recently with medications and abusing substances, with resulting increase in paranoia and psychosis, apparently acutely worsened by recent interaction with police and upcoming court date. His thoughts are disorganized , illogical, and delusional in content, reporting psychotic symptoms of auditory and visual hallucinations but not clearly appearing to respond to internal stimuli, also reporting ongoing suicidal ideations, which have become conditional following admission. Patient did not seem organized and able to function safely outside of the hospital setting at this time, requiring hospitalization with medication re-stabilization, safety, and treatment. PLAN: Admit to [facility]. Suicide precautions. Restart outpatient medications. Will check Depakote level in 3-4 days. Obtain collateral from outpatient providers Dr. Pichardo and [facility]. Also collateral from family and clarify legal charges/court date set for 03/15 as patient reports. Patient did seem quite anxious and distressed, requesting frequently to place his rings back on, which he believes help control his voices. Will add p.r.n. lorazepam for agitation, monitor vital signs routinely. Encourage attendance in groups as he tolerates. He denied smoking any cigarettes and therefore did not want any nicotine gum or patch. Attempted education on destabilizing effects of substances such as marijuana and amphetamines on his mental illness. DIAGNOSES: 1. Schizoaffective disorder, bipolar type, acute episode. 2. Stimulant use disorder, unspecified. 3. Cannabis use disorder, unspecified. 4. Legal stressors. 5. Limited social support. 6. Chronic mental illness. 7. Substance use. 8. Homeless. 9. Noncompliance with treatment. 10. On disability. /[id number]/MODL MTDD
[2017-03-12] MEDS: OMEGA-3 FATTY ACIDS 1,000 MG CAP PO SCH (09:19)
[2017-03-12] MEDS: DIVALPROEX ER 500 MG TAB PO SCH ×2 (09:19→17:10)
[2017-03-12] MEDS: ARIPiprazole 10 MG TAB PO SCH (09:20)
[2017-03-12] MEDS: SERTRALINE HCL 50 MG TAB PO SCH (09:20)
--- NOTE | 2017-03-12 11:09 | SOAPPROG ---
SOAP Progress Note Assessment/Plan: Assessment: Schizoaffective Disorder History of ADHD Suicidal ideation Cannabis Use Disorder - severe Stimulant Use Disorder - severe Possible Stimulant Withdrawal Homeless Legal issues (reported recent arrest for trespass and theft per notes) Patient admitted on M-1 for psychosis and suicidal ideation, now on short term certification. Patient is a poor historian but reports continued AH and SI. [facility] reports patient recently non-compliant with psychiatric pillboxes. Plan: Continue Depakote 1000mg BID Continue Abilify 30mg Continue Sertraline 50mg Check LFTs, TSH, Depakote level in AM Monitor behavior, AH, risk of self-harm Suicide precaution Patient refused to sign JANEEN for mother Patient signed JANEEN for father. Unable to reach on phone. Left voicemail with Dr. Pichardo at [facility] requesting call back. Will request clarification if patient recently received Invega Trinza injection (listed on [facility] medication list) and clarification regarding duration of non-compliance with pillboxes Patient reports [facility] is his Social Security payee When patient cooperative, will try to clarify what legal issues are pending 03/12/17 11:14 Subjective: "I don't want to talk right now I'm tired" Patient is a poor historian with minimal information and avoidance of interview. Reports SI and OD on Tylenol prior to admit. Reports he attempted to hang himself 10 years ago when suicidal and has one prior overdose. Reports [facility] is his payee. Denies medication non-compliance prior to admission. Admits to cannabis but denies amphetamine abuse prior to admission, then later reports 'I don't talk about my drug use.' Reports he lives with mother but refuses to sign JANEEN to discuss discharge planning with mother. Endorses insomnia, irritability, racing thoughts, and mood swings prior to admit. Reports continued AH telling him to suicide and overdose. Denies physical complaints except feeling tired. Denies any history of TBI, seizures, diabetes , or chronic medical problems. Refuses to explain legal issues. Objective: Vital Signs Temp Pulse Resp BP Pulse Ox 36.8 C 86 14 115/64 94 03/11/17 08:00 03/11/17 08:00 03/11/17 08:00 03/11/17 08:00 03/11/17 08:00 PT 12.2 SEC (12.0-15.0) 03/08/17 15:33 INR 0.91 (0.83-1.16) 03/08/17 15:33 Tall well nourished WM, almeida, disheveled, ambulating without tremors or AIM, later lying in bed. Speech RRR few words. Mood 'depressed' Affect restricted. Thoughts briefly organized with poverty of content. Reports SI to overdose on pills with brief command AH. Denies HI or violent thoughts. Limited insight, impaired judgment. Reviewed ED labs and EKG and UTOX results. - Time Spent With Patient Time Spent With Patient: 30 minutes - Pending Discharge Pending Discharge Within 24 Hours: No Pending Discharge Within 48 Hours: No ICD10 Worksheet Patient Problems: Problems Problem Status Onset Schizoaffective disorder Acute Cellulitis Acute Polysubstance abuse Acute
--- NOTE | 2017-03-12 11:09 | SOAPPROG ---
SOAP Progress Note Assessment/Plan: Assessment: Schizoaffective Disorder History of ADHD Suicidal ideation Cannabis Use Disorder - severe Stimulant Use Disorder - severe Possible Stimulant Withdrawal Homeless Legal issues (reported recent arrest for trespass and theft per notes) Patient admitted on M-1 for psychosis and suicidal ideation, now on short term certification. Patient is a poor historian but reports continued AH and SI. [facility] reports patient recently non-compliant with psychiatric pillboxes. Plan: Continue Depakote 1000mg BID Continue Abilify 30mg Continue Sertraline 50mg Check LFTs, TSH, Depakote level in AM Monitor behavior, AH, risk of self-harm Suicide precaution Patient refused to sign JANEEN for mother Patient signed JANEEN for father. Unable to reach on phone. Left voicemail with Dr. Pichardo at [facility] requesting call back. Will request clarification if patient recently received Invega Trinza injection (listed on [facility] medication list) and clarification regarding duration of non-compliance with pillboxes Patient reports [facility] is his Social Security payee When patient cooperative, will try to clarify what legal issues are pending 03/12/17 11:14 Subjective: "I don't want to talk right now I'm tired" Patient is a poor historian with minimal information and avoidance of interview. Reports SI and OD on Tylenol prior to admit. Reports he attempted to hang himself 10 years ago when suicidal and has one prior overdose. Reports [facility] is his payee. Denies medication non-compliance prior to admission. Admits to cannabis but denies amphetamine abuse prior to admission, then later reports 'I don't talk about my drug use.' Reports he lives with mother but refuses to sign JANEEN to discuss discharge planning with mother. Endorses insomnia, irritability, racing thoughts, and mood swings prior to admit. Reports continued AH telling him to suicide and overdose. Denies physical complaints except feeling tired. Denies any history of TBI, seizures, diabetes , or chronic medical problems. Refuses to explain legal issues. Objective: Vital Signs Temp Pulse Resp BP Pulse Ox 36.8 C 86 14 115/64 94 03/11/17 08:00 03/11/17 08:00 03/11/17 08:00 03/11/17 08:00 03/11/17 08:00 PT 12.2 SEC (12.0-15.0) 03/08/17 15:33 INR 0.91 (0.83-1.16) 03/08/17 15:33 Tall well nourished WM, almeida, disheveled, ambulating without tremors or AIM, later lying in bed. Speech RRR few words. Mood 'depressed' Affect restricted. Thoughts briefly organized with poverty of content. Reports SI to overdose on pills with brief command AH. Denies HI or violent thoughts. Limited insight, impaired judgment. Reviewed ED labs and EKG and UTOX results. - Time Spent With Patient Time Spent With Patient: 30 minutes - Pending Discharge Pending Discharge Within 24 Hours: No Pending Discharge Within 48 Hours: No ICD10 Worksheet Patient Problems: Problems Problem Status Onset Schizoaffective disorder Acute Cellulitis Acute Polysubstance abuse Acute
--- NOTE | 2017-03-12 11:09 | SOAPPROG ---
SOAP Progress Note Assessment/Plan: Assessment: Schizoaffective Disorder History of ADHD Suicidal ideation Cannabis Use Disorder - severe Stimulant Use Disorder - severe Possible Stimulant Withdrawal Homeless Legal issues (reported recent arrest for trespass and theft per notes) Patient admitted on M-1 for psychosis and suicidal ideation, now on short term certification. Patient is a poor historian but reports continued AH and SI. [facility] reports patient recently non-compliant with psychiatric pillboxes. Plan: Continue Depakote 1000mg BID Continue Abilify 30mg Continue Sertraline 50mg Check LFTs, TSH, Depakote level in AM Monitor behavior, AH, risk of self-harm Suicide precaution Patient refused to sign JANEEN for mother Patient signed JANEEN for father. Unable to reach on phone. Left voicemail with Dr. Pichardo at [facility] requesting call back. Will request clarification if patient recently received Invega Trinza injection (listed on [facility] medication list) and clarification regarding duration of non-compliance with pillboxes Patient reports [facility] is his Social Security payee When patient cooperative, will try to clarify what legal issues are pending 03/12/17 11:14 Subjective: "I don't want to talk right now I'm tired" Patient is a poor historian with minimal information and avoidance of interview. Reports SI and OD on Tylenol prior to admit. Reports he attempted to hang himself 10 years ago when suicidal and has one prior overdose. Reports [facility] is his payee. Denies medication non-compliance prior to admission. Admits to cannabis but denies amphetamine abuse prior to admission, then later reports 'I don't talk about my drug use.' Reports he lives with mother but refuses to sign JANEEN to discuss discharge planning with mother. Endorses insomnia, irritability, racing thoughts, and mood swings prior to admit. Reports continued AH telling him to suicide and overdose. Denies physical complaints except feeling tired. Denies any history of TBI, seizures, diabetes , or chronic medical problems. Refuses to explain legal issues. Objective: Vital Signs Temp Pulse Resp BP Pulse Ox 36.8 C 86 14 115/64 94 03/11/17 08:00 03/11/17 08:00 03/11/17 08:00 03/11/17 08:00 03/11/17 08:00 PT 12.2 SEC (12.0-15.0) 03/08/17 15:33 INR 0.91 (0.83-1.16) 03/08/17 15:33 Tall well nourished WM, almeida, disheveled, ambulating without tremors or AIM, later lying in bed. Speech RRR few words. Mood 'depressed' Affect restricted. Thoughts briefly organized with poverty of content. Reports SI to overdose on pills with brief command AH. Denies HI or violent thoughts. Limited insight, impaired judgment. Reviewed ED labs and EKG and UTOX results. - Time Spent With Patient Time Spent With Patient: 30 minutes - Pending Discharge Pending Discharge Within 24 Hours: No Pending Discharge Within 48 Hours: No ICD10 Worksheet Patient Problems: Problems Problem Status Onset Schizoaffective disorder Acute Cellulitis Acute Polysubstance abuse Acute
[2017-03-12] MEDS ORDERED: FLU VACC QS 2017-18 (3YR+)/PF 0.5 ML SYR (FLUARIX QUAD) IM ONE (12:01)
[2017-03-12] MEDS: LORazepam 0.5 MG TAB PO PRN (19:10)
[2017-03-13] MEDS: ARIPiprazole 10 MG TAB PO SCH (08:42)
[2017-03-13] MEDS: DIVALPROEX ER 500 MG TAB PO SCH ×2 (08:42→19:45)
[2017-03-13] MEDS: SERTRALINE HCL 50 MG TAB PO SCH (08:43)
[2017-03-13] MEDS: OMEGA-3 FATTY ACIDS 1,000 MG CAP PO SCH (08:43)
--- NOTE | 2017-03-13 10:20 | SOAPPROG ---
SOAP Progress Note Assessment/Plan: Assessment: Schizoaffective Disorder History of ADHD Cannabis Use Disorder - severe Stimulant Use Disorder - severe Possible Stimulant Withdrawal or stimulant related depressive disorder Homeless Legal issues (reported recent arrest for trespass and theft per notes) Possible Malingering to avoid homelessness Patient admitted on M-1 for psychosis and suicidal ideation, now on short term certification. Patient is a poor historian but reports continued AH, now denies SI, but unable to safety plan and was paranoid/irritable with staff this AM. P reports patient recently non-compliant with psychiatric pillboxes. Patient reportedly has upcoming court hearings for trespass and theft. Plan: Discussed dangers of cannabis and amphetamines Continue Depakote 1000mg BID Continue Abilify 30mg Continue Sertraline 50mg LFTs, TSH, Depakote level pending Monitor behavior, AH, risk of self-harm Suicide precaution Plan discharge in 1-2 days if symptoms stable, [facility] 03/13/17 10:20 Subjective: "tired OK?" Patient is a poor historian, refuses to discuss substance abuse or legal issues. Denies any somatic complaints. Unable to explain coping skills to use if having SI or what his housing plan is after discharge, later reports he may be able to stay with mother but refuses JANEEN to allow contact with her. Reports continued AH but unable to give details, endorses then denies command AH. Objective: Vital Signs Temp Pulse Resp BP Pulse Ox 37 C 68 17 129/76 H 96 03/12/17 16:00 03/12/17 16:00 03/12/17 16:00 03/12/17 16:00 03/12/17 16:00 PT 12.2 SEC (12.0-15.0) 03/08/17 15:33 INR 0.91 (0.83-1.16) 03/08/17 15:33 Tired WM lying in bed, ambulatory earlier on unit without tremors or focal weakness. Speech soft voice few words normal rate. Mood 'tired, OK' Affect restricted. Thoughts briefly organized with poverty of detail/content. Denies SI or HI but reports AH, unable to give details. Unable to name coping skills to use if having SI. Guarded attitude. Limited insight, questionable judgment. Staff report patient slept 11 hours. Initially refused blood draw and AM medications with paranoid, irritable attitude but later compliant. Not attending groups and not completing safety plan. - Time Spent With Patient Time Spent With Patient: 20 minutes - Pending Discharge Pending Discharge Within 24 Hours: No Pending Discharge Within 48 Hours: Yes Pending Discharge Date: 03/15/17 Pending Discharge Time: 11:00 ICD10 Worksheet Patient Problems: Problems Problem Status Onset Polysubstance abuse Acute Schizoaffective disorder Acute Cellulitis Acute
[2017-03-14] MEDS: ARIPiprazole 10 MG TAB PO SCH (08:35)
[2017-03-14] MEDS: SERTRALINE HCL 50 MG TAB PO SCH (08:35)
[2017-03-14] MEDS: DIVALPROEX ER 500 MG TAB PO SCH ×2 (08:35→18:54)
[2017-03-14] MEDS: OMEGA-3 FATTY ACIDS 1,000 MG CAP PO SCH (08:36)
--- NOTE | 2017-03-14 08:50 | SOAPPROG ---
SOAP Progress Note Assessment/Plan: Assessment: Schizoaffective Disorder History of ADHD Cannabis Use Disorder - severe Stimulant Use Disorder - severe Possible Stimulant Withdrawal or stimulant related depressive disorder Homeless Legal issues (reported recent arrest for trespass and theft per notes) Possible Malingering to avoid homelessness or court hearings Patient admitted on M-1 for psychosis and suicidal ideation following psychiatric medication non-compliance and substance abuse. Patient now on short term certification. Patient appears calm and denies AH or SI. Patient appears to have negative symptoms (apathy, poverty of thought, impaired abstract thinking) Plan: Discussed dangers of cannabis and amphetamines Continue Depakote 1000mg BID Continue Abilify 30mg Continue Sertraline 50mg Monitor behavior, depressive symptoms, impulse control Discharge tomorrow if stable, with father to attend court hearing, weekly pillboxes at [facility] after discharge 03/14/17 08:50 Subjective: "I'm alright" Patient reports good visit with father yesterday, played [employer] game. Agrees to plan to discharge tomorrow with father in order to attend court hearing. Reports willingness to continue medication with weekly pillboxes at [facility] but unwilling to take Abilify Maintenna shot. Denies severe mood swings or hopelessness or SI. Denies agitation or irritability or paranoia. No physical complaints, denies stiffness or tremors. Reports sleeping well with good appetite. Not interested in substance abuse treatment after discharge. Objective: Vital Signs Temp Pulse Resp BP Pulse Ox 36.4 C 54 L 16 131/70 H 94 03/14/17 00:30 03/14/17 00:30 03/14/17 00:30 03/14/17 00:30 03/14/17 00:30 PT 12.2 SEC (12.0-15.0) 03/08/17 15:33 INR 0.91 (0.83-1.16) 03/08/17 15:33 Alert WM cooperative. Disheveled with almeida. Mood 'alright.' Affect restricted, blunted. Speech soft, few words. Denies SI or HI or AH. Mild psychomotor slowing. Limited insight. Appropriate judgment Labs: LFTs WNL, Depakote level 50 after 3 days. - Time Spent With Patient Time Spent With Patient: 20 minutes - Pending Discharge Pending Discharge Within 24 Hours: No Pending Discharge Within 48 Hours: No ICD10 Worksheet Patient Problems: Problems Problem Status Onset Polysubstance abuse Acute Schizoaffective disorder Acute Cellulitis Acute
--- NOTE | 2017-03-14 08:50 | SOAPPROG ---
SOAP Progress Note Assessment/Plan: Assessment: Schizoaffective Disorder History of ADHD Cannabis Use Disorder - severe Stimulant Use Disorder - severe Possible Stimulant Withdrawal or stimulant related depressive disorder Homeless Legal issues (reported recent arrest for trespass and theft per notes) Possible Malingering to avoid homelessness or court hearings Patient admitted on M-1 for psychosis and suicidal ideation following psychiatric medication non-compliance and substance abuse. Patient now on short term certification. Patient appears calm and denies AH or SI. Patient appears to have negative symptoms (apathy, poverty of thought, impaired abstract thinking) Plan: Discussed dangers of cannabis and amphetamines Continue Depakote 1000mg BID Continue Abilify 30mg Continue Sertraline 50mg Monitor behavior, depressive symptoms, impulse control Discharge tomorrow if stable, with father to attend court hearing, weekly pillboxes at [facility] after discharge 03/14/17 08:50 Subjective: "I'm alright" Patient reports good visit with father yesterday, played [employer] game. Agrees to plan to discharge tomorrow with father in order to attend court hearing. Reports willingness to continue medication with weekly pillboxes at [facility] but unwilling to take Abilify Maintenna shot. Denies severe mood swings or hopelessness or SI. Denies agitation or irritability or paranoia. No physical complaints, denies stiffness or tremors. Reports sleeping well with good appetite. Not interested in substance abuse treatment after discharge. Objective: Vital Signs Temp Pulse Resp BP Pulse Ox 36.4 C 54 L 16 131/70 H 94 03/14/17 00:30 03/14/17 00:30 03/14/17 00:30 03/14/17 00:30 03/14/17 00:30 PT 12.2 SEC (12.0-15.0) 03/08/17 15:33 INR 0.91 (0.83-1.16) 03/08/17 15:33 Alert WM cooperative. Disheveled with almeida. Mood 'alright.' Affect restricted, blunted. Speech soft, few words. Denies SI or HI or AH. Mild psychomotor slowing. Limited insight. Appropriate judgment Labs: LFTs WNL, Depakote level 50 after 3 days. - Time Spent With Patient Time Spent With Patient: 20 minutes - Pending Discharge Pending Discharge Within 24 Hours: No Pending Discharge Within 48 Hours: No ICD10 Worksheet Patient Problems: Problems Problem Status Onset Polysubstance abuse Acute Schizoaffective disorder Acute Cellulitis Acute
--- NOTE | 2017-03-14 08:50 | SOAPPROG ---
SOAP Progress Note Assessment/Plan: Assessment: Schizoaffective Disorder History of ADHD Cannabis Use Disorder - severe Stimulant Use Disorder - severe Possible Stimulant Withdrawal or stimulant related depressive disorder Homeless Legal issues (reported recent arrest for trespass and theft per notes) Possible Malingering to avoid homelessness or court hearings Patient admitted on M-1 for psychosis and suicidal ideation following psychiatric medication non-compliance and substance abuse. Patient now on short term certification. Patient appears calm and denies AH or SI. Patient appears to have negative symptoms (apathy, poverty of thought, impaired abstract thinking) Plan: Discussed dangers of cannabis and amphetamines Continue Depakote 1000mg BID Continue Abilify 30mg Continue Sertraline 50mg Monitor behavior, depressive symptoms, impulse control Discharge tomorrow if stable, with father to attend court hearing, weekly pillboxes at [facility] after discharge 03/14/17 08:50 Subjective: "I'm alright" Patient reports good visit with father yesterday, played [employer] game. Agrees to plan to discharge tomorrow with father in order to attend court hearing. Reports willingness to continue medication with weekly pillboxes at [facility] but unwilling to take Abilify Maintenna shot. Denies severe mood swings or hopelessness or SI. Denies agitation or irritability or paranoia. No physical complaints, denies stiffness or tremors. Reports sleeping well with good appetite. Not interested in substance abuse treatment after discharge. Objective: Vital Signs Temp Pulse Resp BP Pulse Ox 36.4 C 54 L 16 131/70 H 94 03/14/17 00:30 03/14/17 00:30 03/14/17 00:30 03/14/17 00:30 03/14/17 00:30 PT 12.2 SEC (12.0-15.0) 03/08/17 15:33 INR 0.91 (0.83-1.16) 03/08/17 15:33 Alert WM cooperative. Disheveled with almeida. Mood 'alright.' Affect restricted, blunted. Speech soft, few words. Denies SI or HI or AH. Mild psychomotor slowing. Limited insight. Appropriate judgment Labs: LFTs WNL, Depakote level 50 after 3 days. - Time Spent With Patient Time Spent With Patient: 20 minutes - Pending Discharge Pending Discharge Within 24 Hours: No Pending Discharge Within 48 Hours: No ICD10 Worksheet Patient Problems: Problems Problem Status Onset Polysubstance abuse Acute Schizoaffective disorder Acute Cellulitis Acute
[2017-03-14] MEDS: LORazepam 0.5 MG TAB PO PRN (18:54)
[2017-03-14 19:16] VITALS: RESP 12
[2017-03-15] MEDS ORDERED: DIVALPROEX ER 500 MG TAB PO SCH
[2017-03-15] MEDS: DIVALPROEX ER 500 MG TAB PO SCH (08:37)
[2017-03-15] MEDS: ARIPiprazole 10 MG TAB PO SCH (08:37)
[2017-03-15] MEDS: OMEGA-3 FATTY ACIDS 1,000 MG CAP PO SCH (08:37)
[2017-03-15] MEDS: SERTRALINE HCL 50 MG TAB PO SCH (08:37)
[2017-03-15 10:59] VITALS: BP 122/62; PULSE 78; TEMP 98.7; O2SAT 95
--- NOTE | 2017-03-15 12:55 | BDS ---
[f rep st] BEHAVIORAL HEALTH DISCHARGE SUMMARY ADMITTING DIAGNOSES: Schizoaffective disorder, bipolar type. Stimulant-use disorder. Cannabis-use disorder. Legal stressors. Limited support. Homelessness. Noncompliance with treatment. IDENTIFICATION: This is a 32-year-old single white male who has a history of severe mental illness and is in treatment at [facility]. He is on Social Security Disability. The patient's mother and father are , but both live in the area. BRIEF PSYCHIATRIC HISTORY: The patient has approximately 12 past psychiatric hospitalizations for symptoms of psychosis, substance abuse, and mood swings, including past psychiatric hospitalizations at [facility]. The patient was in outpatient treatment at [facility], taking Depakote 1000 mg b.i.d., Abilify 30 mg daily, and Zoloft 50 mg daily with weekly pill boxes prior to admission but had missed his pillbox 1-2 weeks prior to admission. The patient reportedly sees Dr. Pichardo at [facility]. BRIEF MEDICAL ALLERGY: The patient is overweight. Denies any chronic medical problems. He has a history of cannabis- and stimulant-use disorders and a distant history of alcohol abuse. Denies traumatic brain injuries. REASON FOR ADMISSION: The patient was on an M1 hold in the emergency department and then placed on a short-term certification. The patient apparently reported he was having multiple thoughts of suicide. He also was hearing voices telling him to harm himself and was having difficulty caring for himself. He reported having a Tylenol overdose prior to admission, but his acetaminophen level was negative twice in the emergency department. On initial exam, he was an alert white male with a almeida, ambulatory with disorganized thinking, auditory hallucinations telling him to harm himself. He had thoughts of overdosing on pills and had a dysphoric and irritable affect. He did not have any focal weakness. He had some abnormal involuntary movements of his tongue and lower face. His speech was regular rate and rhythm. His insight was poor. His judgment was impaired. He had a guarded attitude with vague, circumstantial, and evasive responses to questions. HOSPITAL COURSE: The patient was restarted on Depakote, Abilify and Zoloft per the [facility] outpatient team. Patient's initial urine drug screen was positive for cannabis and amphetamines. The patient admitted to using drugs, but refused to give any clear details about the frequency or amounts, or substances that he was using. The patient initially reported he was depressed and suicidal. He was irritable and dysphoric. He was isolative to his room and slept a lot. He is able to eat well on the unit prior to discharge. He was isolative and refused groups. He was large cooperative with the staff and medications but refused to be transitioned from oral Abilify to Abilify Maintenna. He reported thoughts of and suicide for 2-3 days after admission and then denied further suicidal ideation; he was initially irritable, hostile, and appeared paranoid for several days but these symptoms improved. The patient was guarded regarding legal problems that he had, including probable court hearings related to trespass and theft charges. The patient signed a release of information for [facility] and for his father, but not his mother. From the unit he called the courthouse and notified them of his hospitalization. His father reported that he would take the patient to a court hearing after discharge regarding a criminal charge. The patient was cooperative with medications on the unit and did not have any side effects. During the course of hospitalization, the patient's affect improved. He appeared brighter with better eye contact, appeared less anxious, and was less irritable and less paranoid. He reported improvement in mood. He reported remission of his suicidal thoughts and denied any further thoughts of or hopelessness. He also reported remission of his auditory hallucinations. LABORATORY DATA: In the emergency department, his urine drug screen was positive for amphetamines and cannabis. After 4 days on the unit, his Depakote level was 50. His admission liver function tests were normal except for total protein and albumin, which were borderline low. His AST was 25, ALT 40, total protein 6.2, albumin 3.4. His TSH was 1.9. His BMP was normal with a creatinine of 0.6, sodium 141, glucose 79, and calcium 9.1. The patient's PT and INR were normal. The patient did not have acetaminophen in his blood, and that was tested twice in the emergency department. Patient's CBC was normal with a white blood cell count 6.9, hemoglobin 14.1, and platelets 279. Patient was seen by the hospitalist for baseline physical exam on the unit. CONDITION AT DISCHARGE: He is an alert white male in no acute distress. He is ambulatory with a almeida. He is overweight. He is cooperative and pleasant. He has minimal speech. He has a guarded attitude regarding his substance abuse and legal issues. He describes his mood as "pretty good." His affect is euthymic and pleasant. His thoughts are briefly organized with a poverty of detail and poverty of content. He denies auditory hallucinations and paranoia. He denies any thoughts to hurt himself or others. His insight is fair. His judgment is appropriate. DISCHARGE DIAGNOSES: 1. Schizoaffective disorder, bipolar type. 2. History of attention deficit hyperactivity disorder. 3. Stimulant-use disorder, severe. 4. Cannabis-use disorder, severe. 5. Homeless. 6. Legal stressors, including court hearings regarding theft and trespass charges. 7. Rule out Malingering to avoid legal charges and court hearings DISPOSITION: The patient will be picked up by his father to go to a court hearing. Patient reports that after discharge he will spend the night at a friend's house. He reports [facility] is his payee for Social Security benefits, and that he will go there tomorrow morning to orange picker a pillbox and to work with the payee regarding his finances. The patient will be given his bedtime medications to take with him for today only; and will he need to go to [facility] for weekly pill boxes starting tomorrow. FOLLOWUP: The patient has followup at [facility] for psychiatric treatment. Patient was given information about [facility] for primary care as the patient had borderline hypertension on the unit. DISCHARGE MEDICATIONS: Depakote 1000 mg by mouth twice a day, Abilify 30 mg by mouth daily, Zoloft 50 mg daily, omega-3 fatty acids 1000 mg by mouth daily. LEGAL STATUS: The patient was admitted on an M1 hold and then placed on a short -term certification. This will be terminated when he is discharged and he can get outpatient treatment on a voluntary basis. /[id number]/MODL MTDD
--- NOTE | 2017-03-15 12:55 | BDS ---
[f rep st] BEHAVIORAL HEALTH DISCHARGE SUMMARY ADMITTING DIAGNOSES: Schizoaffective disorder, bipolar type. Stimulant-use disorder. Cannabis-use disorder. Legal stressors. Limited support. Homelessness. Noncompliance with treatment. IDENTIFICATION: This is a 32-year-old single white male who has a history of severe mental illness and is in treatment at [facility]. He is on Social Security Disability. The patient's mother and father are , but both live in the area. BRIEF PSYCHIATRIC HISTORY: The patient has approximately 12 past psychiatric hospitalizations for symptoms of psychosis, substance abuse, and mood swings, including past psychiatric hospitalizations at [facility]. The patient was in outpatient treatment at [facility], taking Depakote 1000 mg b.i.d., Abilify 30 mg daily, and Zoloft 50 mg daily with weekly pill boxes prior to admission but had missed his pillbox 1-2 weeks prior to admission. The patient reportedly sees Dr. Pichardo at [facility]. BRIEF MEDICAL ALLERGY: The patient is overweight. Denies any chronic medical problems. He has a history of cannabis- and stimulant-use disorders and a distant history of alcohol abuse. Denies traumatic brain injuries. REASON FOR ADMISSION: The patient was on an M1 hold in the emergency department and then placed on a short-term certification. The patient apparently reported he was having multiple thoughts of suicide. He also was hearing voices telling him to harm himself and was having difficulty caring for himself. He reported having a Tylenol overdose prior to admission, but his acetaminophen level was negative twice in the emergency department. On initial exam, he was an alert white male with a almeida, ambulatory with disorganized thinking, auditory hallucinations telling him to harm himself. He had thoughts of overdosing on pills and had a dysphoric and irritable affect. He did not have any focal weakness. He had some abnormal involuntary movements of his tongue and lower face. His speech was regular rate and rhythm. His insight was poor. His judgment was impaired. He had a guarded attitude with vague, circumstantial, and evasive responses to questions. HOSPITAL COURSE: The patient was restarted on Depakote, Abilify and Zoloft per the [facility] outpatient team. Patient's initial urine drug screen was positive for cannabis and amphetamines. The patient admitted to using drugs, but refused to give any clear details about the frequency or amounts, or substances that he was using. The patient initially reported he was depressed and suicidal. He was irritable and dysphoric. He was isolative to his room and slept a lot. He is able to eat well on the unit prior to discharge. He was isolative and refused groups. He was large cooperative with the staff and medications but refused to be transitioned from oral Abilify to Abilify Maintenna. He reported thoughts of and suicide for 2-3 days after admission and then denied further suicidal ideation; he was initially irritable, hostile, and appeared paranoid for several days but these symptoms improved. The patient was guarded regarding legal problems that he had, including probable court hearings related to trespass and theft charges. The patient signed a release of information for [facility] and for his father, but not his mother. From the unit he called the courthouse and notified them of his hospitalization. His father reported that he would take the patient to a court hearing after discharge regarding a criminal charge. The patient was cooperative with medications on the unit and did not have any side effects. During the course of hospitalization, the patient's affect improved. He appeared brighter with better eye contact, appeared less anxious, and was less irritable and less paranoid. He reported improvement in mood. He reported remission of his suicidal thoughts and denied any further thoughts of or hopelessness. He also reported remission of his auditory hallucinations. LABORATORY DATA: In the emergency department, his urine drug screen was positive for amphetamines and cannabis. After 4 days on the unit, his Depakote level was 50. His admission liver function tests were normal except for total protein and albumin, which were borderline low. His AST was 25, ALT 40, total protein 6.2, albumin 3.4. His TSH was 1.9. His BMP was normal with a creatinine of 0.6, sodium 141, glucose 79, and calcium 9.1. The patient's PT and INR were normal. The patient did not have acetaminophen in his blood, and that was tested twice in the emergency department. Patient's CBC was normal with a white blood cell count 6.9, hemoglobin 14.1, and platelets 279. Patient was seen by the hospitalist for baseline physical exam on the unit. CONDITION AT DISCHARGE: He is an alert white male in no acute distress. He is ambulatory with a almeida. He is overweight. He is cooperative and pleasant. He has minimal speech. He has a guarded attitude regarding his substance abuse and legal issues. He describes his mood as "pretty good." His affect is euthymic and pleasant. His thoughts are briefly organized with a poverty of detail and poverty of content. He denies auditory hallucinations and paranoia. He denies any thoughts to hurt himself or others. His insight is fair. His judgment is appropriate. DISCHARGE DIAGNOSES: 1. Schizoaffective disorder, bipolar type. 2. History of attention deficit hyperactivity disorder. 3. Stimulant-use disorder, severe. 4. Cannabis-use disorder, severe. 5. Homeless. 6. Legal stressors, including court hearings regarding theft and trespass charges. 7. Rule out Malingering to avoid legal charges and court hearings DISPOSITION: The patient will be picked up by his father to go to a court hearing. Patient reports that after discharge he will spend the night at a friend's house. He reports [facility] is his payee for Social Security benefits, and that he will go there tomorrow morning to warehouse picker a pillbox and to work with the payee regarding his finances. The patient will be given his bedtime medications to take with him for today only; and will he need to go to [facility] for weekly pill boxes starting tomorrow. FOLLOWUP: The patient has followup at [facility] for psychiatric treatment. Patient was given information about [facility] for primary care as the patient had borderline hypertension on the unit. DISCHARGE MEDICATIONS: Depakote 1000 mg by mouth twice a day, Abilify 30 mg by mouth daily, Zoloft 50 mg daily, omega-3 fatty acids 1000 mg by mouth daily. LEGAL STATUS: The patient was admitted on an M1 hold and then placed on a short -term certification. This will be terminated when he is discharged and he can get outpatient treatment on a voluntary basis. /[id number]/MODL MTDD
--- NOTE | 2017-03-15 12:55 | BDS ---
[f rep st] BEHAVIORAL HEALTH DISCHARGE SUMMARY ADMITTING DIAGNOSES: Schizoaffective disorder, bipolar type. Stimulant-use disorder. Cannabis-use disorder. Legal stressors. Limited support. Homelessness. Noncompliance with treatment. IDENTIFICATION: This is a 32-year-old single white male who has a history of severe mental illness and is in treatment at [facility]. He is on Social Security Disability. The patient's mother and father are , but both live in the area. BRIEF PSYCHIATRIC HISTORY: The patient has approximately 12 past psychiatric hospitalizations for symptoms of psychosis, substance abuse, and mood swings, including past psychiatric hospitalizations at [facility]. The patient was in outpatient treatment at [facility], taking Depakote 1000 mg b.i.d., Abilify 30 mg daily, and Zoloft 50 mg daily with weekly pill boxes prior to admission but had missed his pillbox 1-2 weeks prior to admission. The patient reportedly sees Dr. Pichardo at [facility]. BRIEF MEDICAL ALLERGY: The patient is overweight. Denies any chronic medical problems. He has a history of cannabis- and stimulant-use disorders and a distant history of alcohol abuse. Denies traumatic brain injuries. REASON FOR ADMISSION: The patient was on an M1 hold in the emergency department and then placed on a short-term certification. The patient apparently reported he was having multiple thoughts of suicide. He also was hearing voices telling him to harm himself and was having difficulty caring for himself. He reported having a Tylenol overdose prior to admission, but his acetaminophen level was negative twice in the emergency department. On initial exam, he was an alert white male with a almeida, ambulatory with disorganized thinking, auditory hallucinations telling him to harm himself. He had thoughts of overdosing on pills and had a dysphoric and irritable affect. He did not have any focal weakness. He had some abnormal involuntary movements of his tongue and lower face. His speech was regular rate and rhythm. His insight was poor. His judgment was impaired. He had a guarded attitude with vague, circumstantial, and evasive responses to questions. HOSPITAL COURSE: The patient was restarted on Depakote, Abilify and Zoloft per the [facility] outpatient team. Patient's initial urine drug screen was positive for cannabis and amphetamines. The patient admitted to using drugs, but refused to give any clear details about the frequency or amounts, or substances that he was using. The patient initially reported he was depressed and suicidal. He was irritable and dysphoric. He was isolative to his room and slept a lot. He is able to eat well on the unit prior to discharge. He was isolative and refused groups. He was large cooperative with the staff and medications but refused to be transitioned from oral Abilify to Abilify Maintenna. He reported thoughts of and suicide for 2-3 days after admission and then denied further suicidal ideation; he was initially irritable, hostile, and appeared paranoid for several days but these symptoms improved. The patient was guarded regarding legal problems that he had, including probable court hearings related to trespass and theft charges. The patient signed a release of information for [facility] and for his father, but not his mother. From the unit he called the courthouse and notified them of his hospitalization. His father reported that he would take the patient to a court hearing after discharge regarding a criminal charge. The patient was cooperative with medications on the unit and did not have any side effects. During the course of hospitalization, the patient's affect improved. He appeared brighter with better eye contact, appeared less anxious, and was less irritable and less paranoid. He reported improvement in mood. He reported remission of his suicidal thoughts and denied any further thoughts of or hopelessness. He also reported remission of his auditory hallucinations. LABORATORY DATA: In the emergency department, his urine drug screen was positive for amphetamines and cannabis. After 4 days on the unit, his Depakote level was 50. His admission liver function tests were normal except for total protein and albumin, which were borderline low. His AST was 25, ALT 40, total protein 6.2, albumin 3.4. His TSH was 1.9. His BMP was normal with a creatinine of 0.6, sodium 141, glucose 79, and calcium 9.1. The patient's PT and INR were normal. The patient did not have acetaminophen in his blood, and that was tested twice in the emergency department. Patient's CBC was normal with a white blood cell count 6.9, hemoglobin 14.1, and platelets 279. Patient was seen by the hospitalist for baseline physical exam on the unit. CONDITION AT DISCHARGE: He is an alert white male in no acute distress. He is ambulatory with a almeida. He is overweight. He is cooperative and pleasant. He has minimal speech. He has a guarded attitude regarding his substance abuse and legal issues. He describes his mood as "pretty good." His affect is euthymic and pleasant. His thoughts are briefly organized with a poverty of detail and poverty of content. He denies auditory hallucinations and paranoia. He denies any thoughts to hurt himself or others. His insight is fair. His judgment is appropriate. DISCHARGE DIAGNOSES: 1. Schizoaffective disorder, bipolar type. 2. History of attention deficit hyperactivity disorder. 3. Stimulant-use disorder, severe. 4. Cannabis-use disorder, severe. 5. Homeless. 6. Legal stressors, including court hearings regarding theft and trespass charges. 7. Rule out Malingering to avoid legal charges and court hearings DISPOSITION: The patient will be picked up by his father to go to a court hearing. Patient reports that after discharge he will spend the night at a friend's house. He reports [facility] is his payee for Social Security benefits, and that he will go there tomorrow morning to picker feeder a pillbox and to work with the payee regarding his finances. The patient will be given his bedtime medications to take with him for today only; and will he need to go to [facility] for weekly pill boxes starting tomorrow. FOLLOWUP: The patient has followup at [facility] for psychiatric treatment. Patient was given information about [facility] for primary care as the patient had borderline hypertension on the unit. DISCHARGE MEDICATIONS: Depakote 1000 mg by mouth twice a day, Abilify 30 mg by mouth daily, Zoloft 50 mg daily, omega-3 fatty acids 1000 mg by mouth daily. LEGAL STATUS: The patient was admitted on an M1 hold and then placed on a short -term certification. This will be terminated when he is discharged and he can get outpatient treatment on a voluntary basis. /[id number]/MODL MTDD
== END 2017-03-15 13:10 | disposition home or self-care (01) | DRG 885 ==
LOC: BBEH 03-09 14:18
PROVIDERS: ADMIT Psychiatry & Neurology Psychiatry
DX: F25.0 Schizoaffective disorder, bipolar type (principal); I10 Essential (primary) hypertension; F15.10 Other stimulant abuse, uncomplicated; F12.10 Cannabis abuse, uncomplicated; F90.9 Attention-deficit hyperactivity disorder, unspecified type; Z72.0 Tobacco use; Z59.0 Homelessness
CPT/HCPCS: 80305; G0008; G0480

== ENCOUNTER 2017-05-26 20:49 | Inpatient (IN) | payer OTHER, MEDICAID ==
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
[2017-05-26 21:04] LABS: PLATELET COUNT 323 10^3/uL (150-400)
[2017-05-26 21:13] LABS: INR 0.98 (0.83-1.16); PROTIME(PATIENT) 13.2 SEC (12.0-15.0)
[2017-05-26] MEDS ORDERED: ONDANSETRON DISINTEGRATING 4 MG TAB PO PRN (22:00)
[2017-05-26] MEDS ORDERED: NALOXONE HCL 0.4 MG/ML INJ IVP PRN (22:00)
[2017-05-26] MEDS ORDERED: IBUPROFEN 600 MG TAB PO PRN (22:00)
[2017-05-26] MEDS ORDERED: ONDANSETRON 4 MG/2 ML VIAL IVP PRN (22:00)
[2017-05-26] MEDS ORDERED: LR 1,000 ML IV SCH (22:00)
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
[2017-05-26] MEDS: HYDROCODONE/APAP 5/325 TAB PO PRN (23:20)
[2017-05-27] MEDS ORDERED: IOPAMIDOL (ISOVUE-300) 100 ML BTL ONE (00:28)
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
--- NOTE | 2017-05-27 09:55 | SOAPPROG ---
SOAP Progress Note Assessment/Plan: tertiary exam alert, cooperative, afebrile chest nontender, ?decreased bs on left/ rt shoulder limited rom cor rr abd soft, nontender extrem full rom and pulses except rt shoulder Plan:rt shoulder ct for ortho planning 05/27/17 09:52 Objective: Vital Signs Temp Pulse Resp BP Pulse Ox 36.9 C 68 16 101/65 92 05/27/17 08:06 05/27/17 08:06 05/27/17 08:06 05/27/17 08:06 05/27/17 08:06 05/26/17 05/27/17 05/28/17 05:59 05:59 05:59 Intake Total 300 Balance 300 PT 13.2 SEC (12.0-15.0) 05/26/17 20:50 INR 0.98 (0.83-1.16) 05/26/17 20:50 ICD10 Worksheet Patient Problems: Problems Problem Status Onset Closed right scapular fracture Acute Multiple rib fractures Acute Cellulitis Acute Polysubstance abuse Acute Schizoaffective disorder Acute
[2017-05-27] MEDS: FAMOTIDINE 20 MG/NACL 50 ML IV SCH ×2 (14:32→20:21)
[2017-05-27] MEDS: ARIPiprazole 10 MG TAB PO SCH (14:32)
[2017-05-27] MEDS: DIVALPROEX ER 500 MG TAB PO SCH ×2 (14:32→20:21)
[2017-05-27] MEDS: SERTRALINE HCL 50 MG TAB PO SCH (14:33)
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
[2017-05-28] MEDS: HYDROCODONE/APAP 5/325 TAB PO PRN ×4 (05:54→23:58)
--- NOTE | 2017-05-28 08:52 | SOAPPROG ---
SOAP Progress Note Assessment/Plan: Assessment: Right glenoid fracture Plan: NWB RUE, sling for comfort Pain medicine as needed Ice right shoulder Ortho to follow Subjective: Patient is day 2 from a right glenoid fracture. He states his pain is controlled with medicine. Overall he is doing okay. Objective: Vital Signs Temp Pulse Resp BP Pulse Ox 37.2 C 74 16 119/64 93 05/28/17 08:00 05/28/17 08:00 05/28/17 08:00 05/28/17 08:00 05/28/17 08:00 05/27/17 05/28/17 05/29/17 05:59 05:59 05:59 Intake Total 575 Output Total 2150 Balance -1575 PT 13.2 SEC (12.0-15.0) 05/26/17 20:50 INR 0.98 (0.83-1.16) 05/26/17 20:50 Physical exam of the RUE: pain with ROM of the shoulder. Pain to palpation over the right shoulder. Normal sensation to light touch in the RUE. Distal pulse present in the RUE. ICD10 Worksheet Patient Problems: Problems Problem Status Onset Closed right scapular fracture Acute Multiple rib fractures Acute Occipital scalp laceration Acute Cellulitis Acute Polysubstance abuse Acute Schizoaffective disorder Acute
[2017-05-28] MEDS: ARIPiprazole 10 MG TAB PO SCH (10:53)
[2017-05-28] MEDS: DIVALPROEX ER 500 MG TAB PO SCH ×2 (10:53→20:41)
[2017-05-28] MEDS: SERTRALINE HCL 50 MG TAB PO SCH (10:54)
[2017-05-28] MEDS: FAMOTIDINE 20 MG/NACL 50 ML IV SCH (11:11)
--- NOTE | 2017-05-28 12:15 | SOAPPROG ---
SOAP Progress Note Assessment/Plan: Assessment: Films [id number] with partners to get consensus of opinion and it is felt best option is to l treat scapula/glenoid fracture non op. Sling and swap gunslinger type support Plan:May DC back to long-term when trauma service says ok. No surgical treatment at this time F/U in 3 weeks with my office call [phone] for appt. 05/28/17 12:11 05/28/17 12:14 Objective: Vital Signs Temp Pulse Resp BP Pulse Ox 36.9 C 84 16 126/66 H 93 05/28/17 11:43 05/28/17 11:43 05/28/17 11:43 05/28/17 11:43 05/28/17 11:43 05/27/17 05/28/17 05/29/17 05:59 05:59 05:59 Intake Total 575 Output Total 2150 Balance -1575 PT 13.2 SEC (12.0-15.0) 05/26/17 20:50 INR 0.98 (0.83-1.16) 05/26/17 20:50 CSMT ok. difficulty moving shoulder but muscle group seem to be firing. ICD10 Worksheet Patient Problems: Problems Problem Status Onset Closed right scapular fracture Acute Multiple rib fractures Acute Occipital scalp laceration Acute Cellulitis Acute Polysubstance abuse Acute Schizoaffective disorder Acute
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
[2017-05-28] MEDS: KETOROLAC 15 MG/1 ML SDV IVP SCH ×2 (18:12→23:56)
[2017-05-28] MEDS: FAMOTIDINE 20 MG TAB PO SCH (20:41)
[2017-05-29] MEDS: KETOROLAC 15 MG/1 ML SDV IVP SCH ×2 (06:09→11:22)
[2017-05-29] MEDS: HYDROCODONE/APAP 5/325 TAB PO PRN ×3 (06:09→21:32)
--- NOTE | 2017-05-29 06:50 | SOAPPROG ---
SOAP Progress Note Assessment/Plan: Assessment/Plan: Right glenoid/scapula fracture - Cont NWB arcelia HUANG sling for comfort - Cont current pain regimen as toleratedPain medicine as needed - Cont ice to R shoulder as needed - Ortho will cont to follow while here, ok to d/c from ortho standpoint - F/u with Dr. Weir as an outpatient in 3 wks time 05/29/17 07:11 Subjective: Pt seen at bedside, LE present in room. No complaints of significant pain at rest, but pt states he is apprehensive to move his arm. He notes he does not have a sling yet. Per nursing report, this will need to be obtained from the OR , which I will facilitate. States he is tolerating his diet and medications well. No new complaints of bilat post calf pain, cp, sob, as well as any new onset n/t. No additional concerns or complaints at this time. Objective: Vital Signs Temp Pulse Resp BP Pulse Ox 36.9 C 87 16 116/64 92 05/29/17 00:00 05/29/17 00:00 05/29/17 00:00 05/29/17 00:00 05/29/17 00:00 05/28/17 05/29/17 05/30/17 05:59 05:59 05:59 Intake Total 575 1000 Output Total 2150 850 Balance -1575 150 PT 13.2 SEC (12.0-15.0) 05/26/17 20:50 INR 0.98 (0.83-1.16) 05/26/17 20:50 VSS, NAD, A&O, pleasant and cooperative with exam. Pt asks repeat questions, possible that he is not understanding treatment plan. Exam of the R shoulder is limited as ROM is not assessed with current fracture state, but pain is noted with repositioning. TTP over the shoulder globally. Upper arm compartment supple. Elbow, forearm, wrist and hand exams are benign. Pt is intact to light touch sensation distally. Post calves are NTTP, no palpable vascular cords, neg Diomedes's bilat. DNVI BUE and BLE. ICD10 Worksheet Patient Problems: Problems Problem Status Onset Closed right scapular fracture Acute Multiple rib fractures Acute Occipital scalp laceration Acute Cellulitis Acute Polysubstance abuse Acute Schizoaffective disorder Acute
[2017-05-29] MEDS: FAMOTIDINE 20 MG TAB PO SCH ×2 (09:43→09:49)
[2017-05-29] MEDS: DIVALPROEX ER 500 MG TAB PO SCH ×2 (09:43→21:32)
[2017-05-29] MEDS: ARIPiprazole 10 MG TAB PO SCH (09:43)
[2017-05-29] MEDS: SERTRALINE HCL 50 MG TAB PO SCH (09:43)
--- NOTE | 2017-05-29 14:30 | WOCRNPDOC ---
WOCRN Advanced Assessment Note - Skin Integrity Problem, Advanced Assess Bilateral Anterior Lower Leg Unknown Dressing Type: Allevyn Life Other Dressing Type: multiple Dressing Description: Clean/Dry, Intact Exudate Amount: Scant Exudate Color: Reddish/Yellow Exudate Characteristic(s): Serosanguinous Integumentary Issue Intervention: Visualized Under Dressing [place] Wound Tissue: Blanching, Erythema, Intact Wound Bed Color: Royal, Red, Yellow Wound Bed Constitution: Red/Royal - Non Granular Tissue Wound Edges: Attached, Well Defined Skin Integrity Problem Comment: Multiple small wounds discovered by SNEHA Richard on patients bilateral lower legs. Patient tells me that he was "itchy and needed to scratch". Also, that his "skin disease" makes him do this. Wounds cleaned by SNEHA Richard and covered with Allevyn. Will add silvasorb gel to this regiment. Wound care will round again next week.
[2017-05-29] MEDS ORDERED: KETOROLAC 30 MG/1 ML SDV IVP PRN (14:53)
--- NOTE | 2017-05-29 16:11 | TRAUMAPN ---
Assessment/Plan: 05/29/2017 PAD#3 Assessment: Schizoaffective disorder- Medications restarted Occipital scalp laceration- Wound clean and dry Right glenoid and scapula fracture - stable/non operative Right rib fractures (3)- Lungs clear - fractures minimally displaced HTN - stable Superficial abrasions - bilateral lower legs DVT prophylaxis - SCDs Constipation due to medications and patient's fear of stool Plan: Schizoaffective disorder- Levels pending - hospitalist consult requested Occipital scalp laceration- [facility] out on 06/06/2017 Right glenoid and scapula fracture - use sling, have increased Toradol dose and added Flexeril Right rib fractures (3)- encourage IS use HTN - stable Superficial abrasions - topical treatment DVT prophylaxis - SCDs Constipation - added Miralax Subjective: My right shoulder /back/ribs hurt Objective: Vital Signs Temp Pulse Resp BP Pulse Ox 37.1 C 79 16 121/59 H 88 L 05/29/17 15:59 05/29/17 15:59 05/29/17 15:59 05/29/17 15:59 05/29/17 15:59 05/28/17 05/29/17 05/30/17 05:59 05:59 05:59 Intake Total 575 1000 1250 Output Total 2150 850 750 Balance -1575 150 500 PT 13.2 SEC (12.0-15.0) 05/26/17 20:50 INR 0.98 (0.83-1.16) 05/26/17 20:50 - C-Spine Clearance Cervical Spine Cleared: Yes Physical Exam - Physical Exam General Appearance: WD/WN, alert, mild distress EENT: other (occipital scalp lac without drainage) Neck: non-tender, full range of motion Respiratory: chest non-tender, lungs clear, other (IS to 1999) Cardiac/Chest: regular rate, rhythm, other (nontender to AP and lateral compression) Abdomen: normal bowel sounds, non-tender, soft Male Genitalia: deferred Rectal: deferred Back: Normal inspection Skin: normal color, warm/dry Extremities: normal range of motion, other (right shoulder tender with manipulation) Neuro/Psych: no motor/sensory deficits, alert, oriented x 3 Time Spent w/Patient (minutes): 35
[2017-05-29] MEDS: CYCLOBENZAPRINE 10 MG TAB PO SCH ×2 (16:29→21:32)
[2017-05-29] MEDS: POLYETHYLENE GLYCOL 3350 17 GM PKT PO SCH ×2 (16:29→21:32)
[2017-05-29] MEDS: KETOROLAC 30 MG/1 ML SDV IVP SCH ×2 (18:06→23:19)
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
[2017-05-30 05:37] LABS: PLATELET COUNT 194 10^3/uL (150-400)
[2017-05-30] MEDS: KETOROLAC 30 MG/1 ML SDV IVP SCH ×4 (05:39→23:42)
--- NOTE | 2017-05-30 08:57 | SOAPPROG ---
SOSTAN Progress Note Assessment/Plan: Assessment/Plan: R scapula/glenoid fracture HOD#4 - Continue pain management - Continue abductor sling RUE - NWB RUE - R elbow, wrist and hand ROM okay - Currently non-operative treatment - Will follow-up with Dr. Weir in 3 weeks 05/30/17 08:53 Subjective: Pt is sleeping, states his pain is currently minimal. Pt has been wearing his sling on the RUE, tolerating well. Pt denies fever, chills, chest pain, SOB, abdominal pain, N/V/D, numbness, tingling and calf pain. Objective: Vital Signs Temp Pulse Resp BP Pulse Ox 36.6 C 59 L 18 111/60 93 05/30/17 07:41 05/30/17 07:41 05/30/17 07:41 05/30/17 07:41 05/30/17 07:41 Laboratory Results 05/30/17 04:57 05/30/17 04:57 05/29/17 05/30/17 05/31/17 05:59 05:59 05:59 Intake Total 1000 1600 Output Total 850 1950 Balance 150 -350 PT 13.2 SEC (12.0-15.0) 05/26/17 20:50 INR 0.98 (0.83-1.16) 05/26/17 20:50 Physical Exam - Physical Exam General Appearance: alert, no apparent distress Cardiac/Chest: normal peripheral pulses Skin: normal color, warm/dry Extremities: normal inspection, normal capillary refill, other (TTP over the R shoulder and scapula, moves fingers well, 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
[2017-05-30] MEDS: HYDROCODONE/APAP 5/325 TAB PO PRN ×2 (09:27→21:34)
[2017-05-30] MEDS: ARIPiprazole 10 MG TAB PO SCH (09:28)
[2017-05-30] MEDS: CYCLOBENZAPRINE 10 MG TAB PO SCH ×3 (09:28→21:34)
[2017-05-30] MEDS: SERTRALINE HCL 50 MG TAB PO SCH (09:28)
[2017-05-30] MEDS: POLYETHYLENE GLYCOL 3350 17 GM PKT PO SCH ×2 (09:28→21:34)
[2017-05-30] MEDS: DIVALPROEX ER 500 MG TAB PO SCH ×2 (09:28→21:34)
--- NOTE | 2017-05-30 09:31 | HOSPPROG ---
Hospitalist Progress Note Assessment/Plan: Patient is a 32-year-old male who recently sustained a 15 ft fall over rale while in half-way. He had hit his head and lost consciousness. He was diagnosed with a scapula/glenoid fracture. At this time this is non operative. He also suffered occipital laceration, rib fractures x3. Today is my 1st encounter with the patient. Chart reviewed. * schizoaffective disorder, below polar type -Abilify and Zoloft have been resumed. He is also on valproic acid (level is within therapeutic range) -Dr. Birmingham here to see patient today (with Behavioral Health) * rib fractures -continue aggressive pulmonary hygiene including spirometer *headache -medicated this morning * scapula and glenoid fracture * concussion * occipital laceration * plan. Patient is doing well overall. I suspect he will be discharged in the next 1-2 days back to half-way. It is important that he continue his medications for his schizophrenia disorder. Subjective: Sandor is c/o headache and wants to sleep. Objective: Vital Signs Temp Pulse Resp BP Pulse Ox 36.6 C 59 L 18 111/60 93 05/30/17 07:41 05/30/17 07:41 05/30/17 07:41 05/30/17 07:41 05/30/17 07:41 Laboratory Results 05/30/17 04:57 05/30/17 04:57 05/29/17 05/30/17 05/31/17 05:59 05:59 05:59 Intake Total 1000 1600 Output Total 850 1950 Balance 150 -350 PT 13.2 SEC (12.0-15.0) 05/26/17 20:50 INR 0.98 (0.83-1.16) 05/26/17 20:50 - Physical Exam Constitutional: no apparent distress, appears nourished, No not in pain Eyes: PERRL Ears, Nose, Mouth, Throat: hearing normal Cardiovascular: regular rate and rhythym Respiratory: no respiratory distress Gastrointestinal: normoactive bowel sounds Skin: warm, normal color Neurologic: AAOx3 Psychiatric: not encephalopathic, thought process linear, flat affect ICD10 Worksheet Patient Problems: Problems Problem Status Onset Closed right scapular fracture Acute Multiple rib fractures Acute Occipital scalp laceration Acute Cellulitis Acute Polysubstance abuse Acute Schizoaffective disorder Acute
--- NOTE | 2017-05-30 12:53 | TRAUMAPN ---
Assessment/Plan: 05/29/2017 PAD#3 Assessment: Schizoaffective disorder- Medications restarted Occipital scalp laceration- Wound clean and dry Right glenoid and scapula fracture - stable/non operative Right rib fractures (3)- Lungs clear - fractures minimally displaced HTN - stable Superficial abrasions - bilateral lower legs DVT prophylaxis - SCDs Constipation due to medications and patient's fear of stool Plan: Schizoaffective disorder- Levels pending - hospitalist consult requested Occipital scalp laceration- mercy out on 06/06/2017 Right glenoid and scapula fracture - use sling, have increased Toradol dose and added Flexeril Right rib fractures (3)- encourage IS use HTN - stable Superficial abrasions - topical treatment DVT prophylaxis - SCDs Constipation - added Miralax PAD#4 05/30/2017 Assessment: Schizoaffective disorder- Medications restarted - valproic acid level adequate Occipital scalp laceration- Wound clean and dry Right glenoid and scapula fracture - stable/non operative Still need wedge and sling. Good pain control Right rib fractures (3)- Lungs clear - fractures minimally displaced HTN - stable Superficial abrasions - bilateral lower legs - improving DVT prophylaxis - SCDs Constipation due to medications and patient's fear of stool - on miralax no results yet Unable to perform ADLs (prerequisite to return to Skilled Nursing) Plan: schizoaffective disorder- hospitalist input appreciated Occipital scalp laceration- mercy out on 06/06/2017 Right glenoid and scapula fracture - use sling/wedge Right rib fractures (3)- encourage IS use HTN - stable Superficial abrasions - topical treatment appears to be working DVT prophylaxis - SCDs Constipation - if no results will re-address Subjective: I have a headache but my shoulder is better Objective: Vital Signs Temp Pulse Resp BP Pulse Ox 36.6 C 59 L 18 111/60 93 05/30/17 07:41 05/30/17 07:41 05/30/17 07:41 05/30/17 07:41 05/30/17 07:41 Laboratory Results 05/30/17 04:57 05/30/17 04:57 05/29/17 05/30/17 05/31/17 05:59 05:59 05:59 Intake Total 1000 1600 Output Total 850 1950 Balance 150 -350 PT 13.2 SEC (12.0-15.0) 05/26/17 20:50 INR 0.98 (0.83-1.16) 05/26/17 20:50 - C-Spine Clearance Cervical Spine Cleared: Yes Physical Exam - Physical Exam General Appearance: WD/WN, alert, mild distress EENT: other (Laceration with minimal drainage) Neck: non-tender, full range of motion, supple Respiratory: chest non-tender, lungs clear, normal breath sounds Cardiac/Chest: regular rate, rhythm Abdomen: normal bowel sounds, non-tender, soft Male Genitalia: deferred Rectal: deferred Back: Normal inspection Skin: normal color Extremities: normal range of motion, non-tender, other (abrasions show clearing of eschar) Neuro/Psych: alert Time Spent w/Patient (minutes): 25
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
--- NOTE | 2017-05-30 16:33 | ASMTCMCOM ---
CM Note CM Note Notes: The following CM notes were not locked in [employer]: Annamarie Berry 05/28/17 Spoke with RN; informed pt may not be able to return to prison if he is not completing his ADLs independently. Discussed pt's psychiatric hx & recent suicide attempt. Spoke with Jessie BAR & ; orders recieved for Behaviorial Health RN consult & Psych consult. states CM will need to discuss pt's conditions for returning to prison with Irma ([phone]) at the prison. Alerted Yoli, in [facility], of Psych consult order; Yoli to discuss with Psych MD. Pt's RN Hilary reports she alerted Catherine Calvo of Behaviorial RN consult order as well. Alerted that pt is current with [facility]; [facility] will need to be notified when pt is medically stable & ready for dc. CM will continue to follow. Tiana Park 05/29/17 Spoke with Irma from the prison [phone]. Informed her Inpt Rehab declined to accept pt and PT/OT have cleared him. Irma stated that they have hired a private duty JACKER in the past to assist inmates in the prison. She will discuss with her administration and contact [facility] if she gets the go ahead. Pt was arrested for burglary and trespassing and other charges. CM will continue to follow for any d/c needs. Date Signed: 05/30/2017 04:32 PM Electronically Signed By:MAXX Bello
[2017-05-30] MEDS ORDERED: PALIPERIDONE PALMITATE 234 MG/1.5 ML SYR IM ONE (17:00)
[2017-05-31] MEDS: KETOROLAC 30 MG/1 ML SDV IVP SCH ×3 (05:21→17:40)
[2017-05-31] MEDS: HYDROCODONE/APAP 5/325 TAB PO PRN ×4 (05:22→21:31)
--- NOTE | 2017-05-31 07:38 | SOAPPROG ---
SOAP Progress Note Assessment/Plan: Assessment/Plan: Right scapula/glenoid fracture HOD#5 - Continue pain management - Continue abductor sling RUE - NWB RUE - Right elbow, wrist and hand ROM okay - Currently non-operative treatment - Will follow-up with Dr. Weir in 3 weeks -D/C pending Behavior Health assessment Subjective: Pt is now 5 days out from his injury and states his pain is minimal and controlled with medicine. Pt wearing his sling on the RUE, tolerating well. Pt denies fever, chills, chest pain, SOB, abdominal pain, N/V/D, numbness, tingling and calf pain. Objective: Vital Signs Temp Pulse Resp BP Pulse Ox 36.4 C 64 16 108/55 L 95 05/31/17 07:18 05/31/17 07:18 05/31/17 07:18 05/31/17 07:18 05/31/17 07:18 Laboratory Results 05/30/17 04:57 05/30/17 04:57 05/30/17 05/31/17 06/01/17 05:59 05:59 05:59 Intake Total 1600 1250 Output Total 1950 2 Balance -350 1248 PT 13.2 SEC (12.0-15.0) 05/26/17 20:50 INR 0.98 (0.83-1.16) 05/26/17 20:50 Physical exam of the RUE: normal capillary refill, Tender to palpation over the Right shoulder and scapula. Pt able to moves fingers well, good director diversity strength. Normal sensation to light touch in the RUE. No pedal edema, No calf tenderness, No swelling, No Diomedes's sign ICD10 Worksheet Patient Problems: Problems Problem Status Onset Closed right scapular fracture Acute Multiple rib fractures Acute Occipital scalp laceration Acute Cellulitis Acute Polysubstance abuse Acute Schizoaffective disorder Acute
[2017-05-31] MEDS: POLYETHYLENE GLYCOL 3350 17 GM PKT PO SCH ×2 (09:31→21:30)
[2017-05-31] MEDS: SERTRALINE HCL 50 MG TAB PO SCH (09:32)
[2017-05-31] MEDS: DIVALPROEX ER 500 MG TAB PO SCH ×2 (09:32→21:31)
[2017-05-31] MEDS: ARIPiprazole 10 MG TAB PO SCH (09:32)
[2017-05-31] MEDS: CYCLOBENZAPRINE 10 MG TAB PO SCH ×3 (09:32→21:31)
--- NOTE | 2017-05-31 14:31 | HOSPPROG ---
Hospitalist Progress Note Assessment/Plan: Patient is a 32-year-old male who recently sustained a 15 ft fall over rale while in fdc. He had hit his head and lost consciousness. He was diagnosed with a scapula/glenoid fracture. At this time this is non operative. He also suffered occipital laceration, rib fractures x3. Today is my 1st encounter with the patient. Chart reviewed. * schizoaffective disorder, bipolar type -Abilify and Zoloft have been resumed. He is also on valproic acid (level is within therapeutic range) -Dr. Birmingham saw pt (with Behavioral Health) * rib fractures -continue aggressive pulmonary hygiene including spirometer *headache -none currently * scapula and glenoid fracture * concussion * occipital laceration * plan. Patient is doing well overall. I suspect he will be discharged in the next 1-2 days back to fdc. It is important that he continue his medications for his schizophrenia disorder. D/W CM regarding dispo needs Subjective: Sleeping, arousable. Objective: Vital Signs Temp Pulse Resp BP Pulse Ox 36.4 C 64 16 108/55 L 95 05/31/17 07:18 05/31/17 07:18 05/31/17 07:18 05/31/17 07:18 05/31/17 07:18 Laboratory Results 05/30/17 04:57 05/30/17 04:57 05/30/17 05/31/17 06/01/17 05:59 05:59 05:59 Intake Total 1600 1250 Output Total 1950 2 Balance -350 1248 PT 13.2 SEC (12.0-15.0) 05/26/17 20:50 INR 0.98 (0.83-1.16) 05/26/17 20:50 - Physical Exam Constitutional: appears nourished, not in pain, chronically ill appearing Eyes: PERRL, anicteric sclera, EOMI Ears, Nose, Mouth, Throat: moist mucous membranes, hearing normal, ears appear normal Cardiovascular: No JVD, No tachycardia, No edema Respiratory: no respiratory distress, no rales or rhonchi, reduced air movement Gastrointestinal: normoactive bowel sounds, No tenderness, No ascites Skin: warm, normal color, No mottled Musculoskeletal: normal joint ROM, no joint effusions, generalized weakness Psychiatric: not anxious, poor insight, poor judgement, poor memory ICD10 Worksheet Patient Problems: Problems Problem Status Onset Multiple rib fractures Acute Closed right scapular fracture Acute Occipital scalp laceration Acute Schizoaffective disorder Acute Cellulitis Acute Polysubstance abuse Acute
--- NOTE | 2017-05-31 14:47 | ASMTCMCOM ---
CM Note CM Note Notes: Spoke at length with Irma Webb [phone] Health Services Admin with [facility], she states they are able to accept pt returning to detention as long as he is medically and psych stable. Clinicals including PT/OT notes were faxed to Irma (F:[phone]). Irma is able to set up [facility] care with [facility]; initially stating they may provide pt w a TREE CLIMBER 12 hours a day and then states since they are paying for that out of pocket that may get too pricey. Irma may complete an on-site assessment at [facility]. This detention does not have an infirmary. Irma reports the staff can assist pt get dressed but want him able to complete ADLs as best as possible. The detention is prepared to take pt back as soon as tomorrow if pt does d/c. [facility] will also be able to provide pt narcs (no benzos) if prescribed. Based on discussion with psychiatrist Mariangel Birmingham it does not sound as if pt would qualify for M1 hold. CM to follow. Date Signed: 05/31/2017 02:47 PM Electronically Signed By:MAXX Bello
[2017-05-31 15:14] VITALS: O2SAT 92
[2017-05-31] MEDS ORDERED: MAGNESIUM CITRATE 300 ML BOTTLE PO ONE (17:34)
--- NOTE | 2017-05-31 17:34 | TRAUMAPN ---
Assessment/Plan: 05/29/2017 PAD#3 Assessment: Schizoaffective disorder- Medications restarted Occipital scalp laceration- Wound clean and dry Right glenoid and scapula fracture - stable/non operative Right rib fractures (3)- Lungs clear - fractures minimally displaced HTN - stable Superficial abrasions - bilateral lower legs DVT prophylaxis - SCDs Constipation due to medications and patient's fear of stool Plan: Schizoaffective disorder- Levels pending - hospitalist consult requested Occipital scalp laceration- mercy out on 06/06/2017 Right glenoid and scapula fracture - use sling, have increased Toradol dose and added Flexeril Right rib fractures (3)- encourage IS use HTN - stable Superficial abrasions - topical treatment DVT prophylaxis - SCDs Constipation - added Miralax PAD#4 05/30/2017 Assessment: Schizoaffective disorder- Medications restarted - valproic acid level adequate Occipital scalp laceration- Wound clean and dry Right glenoid and scapula fracture - stable/non operative Still need wedge and sling. Good pain control Right rib fractures (3)- Lungs clear - fractures minimally displaced HTN - stable Superficial abrasions - bilateral lower legs - improving DVT prophylaxis - SCDs Constipation due to medications and patient's fear of stool - on miralax no results yet Unable to perform ADLs (prerequisite to return [facility]) Plan: schizoaffective disorder- hospitalist input appreciated Occipital scalp laceration- mercy out on 06/06/2017 Right glenoid and scapula fracture - use sling/wedge Right rib fractures (3)- encourage IS use HTN - stable Superficial abrasions - topical treatment appears to be working DVT prophylaxis - SCDs Constipation - if no results will re-address PAD#5 05/31/2017 Assessment: Schizoaffective disorder- Medications restarted - valproic acid level adequate Occipital scalp laceration- Wound clean and dry He has a clear mucoid drainage behind ears without obvious source. states that it was present prior to oxygen tubing. Right glenoid and scapula fracture - stable/non operative Still need wedge and sling. Good pain control Right rib fractures (3)- Lungs clear - fractures minimally displaced HTN - stable Superficial abrasions - bilateral lower legs - improving DVT prophylaxis - SCDs Constipation due to medications and patient's fear of stool - on miralax no results yet Unable to perform ADLs (prerequisite to return to [facility]) Plan: schizoaffective disorder- hospitalist input appreciated Occipital scalp laceration- mercy out on 06/06/2017 Right glenoid and scapula fracture - still have yet to obtain sling/wedge Right rib fractures (3)- encourage IS use HTN - stable Superficial abrasions - topical treatment appears to be working DVT prophylaxis - SCDs Constipation - will try mag citrate in addition to Miralax Subjective: c/o headache and right shoulder pain Objective: Vital Signs Temp Pulse Resp BP Pulse Ox 36.4 C 76 18 125/79 H 92 05/31/17 15:11 05/31/17 15:11 05/31/17 15:11 05/31/17 15:11 05/31/17 15:11 Laboratory Results 05/30/17 04:57 05/30/17 04:57 05/30/17 05/31/17 06/01/17 05:59 05:59 05:59 Intake Total 1600 1250 Output Total 1950 2 Balance -350 1248 PT 13.2 SEC (12.0-15.0) 05/26/17 20:50 INR 0.98 (0.83-1.16) 05/26/17 20:50 - C-Spine Clearance Cervical Spine Cleared: Yes Physical Exam - Physical Exam General Appearance: WD/WN, alert, no apparent distress EENT: other (clear mucoid drainage behind both ears - etiology unclear) Neck: non-tender, full range of motion, supple Respiratory: lungs clear, normal breath sounds Cardiac/Chest: regular rate, rhythm Abdomen: non-tender, soft Male Genitalia: deferred Rectal: deferred Back: Normal inspection Skin: normal color, warm/dry Time Spent w/Patient (minutes): 15
[2017-05-31 23:40] VITALS: RESP 16
[2017-06-01] MEDS: KETOROLAC 30 MG/1 ML SDV IVP SCH ×3 (00:19→12:55)
[2017-06-01] MEDS: HYDROCODONE/APAP 5/325 TAB PO PRN (05:37)
[2017-06-01 08:03] VITALS: BP 123/73; PULSE 61; TEMP 98
[2017-06-01] MEDS: POLYETHYLENE GLYCOL 3350 17 GM PKT PO SCH (08:29)
[2017-06-01] MEDS: DIVALPROEX ER 500 MG TAB PO SCH (08:29)
[2017-06-01] MEDS: CYCLOBENZAPRINE 10 MG TAB PO SCH (08:30)
[2017-06-01] MEDS: SERTRALINE HCL 50 MG TAB PO SCH (08:30)
[2017-06-01] MEDS: ARIPiprazole 10 MG TAB PO SCH (08:30)
--- NOTE | 2017-06-01 08:53 | TRAUMAPN ---
Assessment/Plan: This is a 32-year-old gentleman who fell 15 ft while in senior living. The patient has a right glenoid and scapular fracture as well as 2 small posterior rib fractures. He had a laceration on the back of his os put which has been treated with staple closure. Appreciate medicine/psych input He has a history of mental disease bipolar disorder on Depakote. Depakote levels are adequate. Non operative treatment has been elected for by the Orthopedic surgery service. 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 DNVI Impression/plan: This is a 32-year-old gentleman with a history of bipolar disorder still has some mental challenges at this time will get behavioral health nurse involved at this time. Occupational therapy will see for evaluation. Appropriate pain medication. Likely discharge within 48 hr when able to perform activities of daily living independently and has adequate pain control. Sling with Abduction pillow for scapula/glenoid injury Pain control Group Home may not be the best place post discharge if he is unable to perform ADLs independently Will d/w social work/case management Objective: Vital Signs Temp Pulse Resp BP Pulse Ox 36.7 C 61 16 123/73 H 92 06/01/17 08:00 06/01/17 08:00 06/01/17 08:00 06/01/17 08:00 06/01/17 08:00 Laboratory Results 05/30/17 04:57 05/30/17 04:57 05/31/17 06/01/17 06/02/17 05:59 05:59 05:59 Intake Total 1250 1500 Output Total 2 3 Balance 1248 1497 PT 13.2 SEC (12.0-15.0) 05/26/17 20:50 INR 0.98 (0.83-1.16) 05/26/17 20:50 - C-Spine Clearance Cervical Spine Cleared: Yes
--- NOTE | 2017-06-01 09:30 | SOAPPROG ---
SAM Progress Note Assessment/Plan: Assessment/Plan: Right scapula/glenoid fracture HOD#6: non-operative plan of care. - Continue pain management and plan per hospitalists. - Continue abductor sling RUE, NWB to right upper extremity at this time but can continue AROM of right elbow, wrist and hand. - Will follow-up with Dr. Weir in 3 weeks or prn additional questions/ concerns. - D/C pending hospitalists, Behavioral Health assessment, PT/OT and case management. - Call our office [phone] for any abnormal numbness/tingling, worsening change in ROM or strength, change in heat/color of extremity or prn additional questions or concerns which may arise. -Pt plan discussed/agreed with Dr. Weir. Subjective: Patient is now 6 days out from his injury and states his pain is minimal and controlled with medicine. Has been ambulating. Has passed flatus and BM. Guard in room. Patient has been wearing his sling on the RUE, tolerating well, he had an abduction pillow ordered. During today's exam, attempted to fit the abduction pillow to him, but due to patient habitus size, will need to have PT/ OT eval and fit him for sling. Able to only minimally move his right shoulder due to extreme pain to patient; denies distal loss of ROM in upper extremities. Patient denies fever, chills, chest pain, cough, congestion, dyspnea, SOB, abdominal pain, N/V/D, abnormal numbness/tingling, claudication. Objective: Vital Signs Temp Pulse Resp BP Pulse Ox 36.7 C 61 16 123/73 H 92 06/01/17 08:00 06/01/17 08:00 06/01/17 08:00 06/01/17 08:00 06/01/17 08:00 Laboratory Results 05/30/17 04:57 05/30/17 04:57 05/31/17 06/01/17 06/02/17 05:59 05:59 05:59 Intake Total 1250 1500 Output Total 2 3 Balance 1248 1497 PT 13.2 SEC (12.0-15.0) 05/26/17 20:50 INR 0.98 (0.83-1.16) 05/26/17 20:50 - Pending Discharge Pending Discharge Within 48 Hours: Yes Pending Discharge Date: 06/03/17 (PT/OT, hospitalists, case management, behavioral health.) Pending Discharge Time: 11:00 Physical Exam - Physical Exam General Appearance: WD/WN, alert EENT: PERRL/EOMI Neck: non-tender, full range of motion, normal inspection Respiratory: other (Non labored breathing, no diaphoresis.) Peripheral Pulses: 1+: dorsalis-pedis (R), dorsalis-pedis (L) Abdomen: non-tender, soft Skin: warm/dry (No diaphoresis noted.) Extremities: non-tender, normal capillary refill, other (Right upper extremity held with guarding, AROM only to 5 degrees in flexion/extension of the shoulder before severe pain is elicited to the patient; otherwise, full AROM distally to the right shoulder with no focal deficits. Brisk cap refill b/l with 5/5 strength present b/l; did not test strength of right shoulder due to severe pain to patient. Gross sensation intact b/l with no focal deficits. Antalgic gait. Negative b/l Homans; calves soft/supple and NTTP b/l. ) Neuro/Psych: alert, normal mood/affect ICD10 Worksheet Patient Problems: Problems Problem Status Onset Closed right scapular fracture Acute Multiple rib fractures Acute Occipital scalp laceration Acute Cellulitis Acute Polysubstance abuse Acute Schizoaffective disorder Acute
--- NOTE | 2017-06-01 12:49 | PDIAF ---
- Diagnosis Code Status: Full Code - Medication Management Discharge Medications: Medications to Continue on Transfer [place]-3 Fatty Acids [Fish Oil 1000 mg (*)] 1,000 mg PO DAILY 03/09/17 [Last Taken 03/08/17] ARIPiprazole [Abilify 10 mg (*)] 30 mg PO DAILY #30 tab 03/15/17 [Last Taken Unknown] Divalproex ER [Depakote ER 500 MG (*)] 1,000 mg PO BID #120 tab 03/15/17 [Last Taken Unknown] Sertraline HCl [Zoloft 50mg (*)] 50 mg PO DAILY #30 tab 03/15/17 [Last Taken Unknown] Paliperidone Palmitate [Invega Sustenna (*)] 234 mg IM Q28D 05/29/17 [Last Taken 04/30/17] Acetaminophen with Codeine [Tylenol #3] 1 tab PO Q4-6PRN PRN #40 tab 06/01/17 [ Last Taken Unknown] Cyclobenzaprine [Flexeril 10 MG (*)] 10 mg PO TID #30 tab 06/01/17 [Last Taken Unknown] traMADol [Ultram 50 mg (*)] 50 mg PO Q6 #40 tab 06/01/17 [Last Taken Unknown] Discharge Medications: Refer to the Discharge Home Medication list for PRN reason. - Orders Services needed: Certified [employer] Isolation Type: None Diet Recommendation: no restrictions on diet Diet Texture: Regular Texture Diet Sutures/Shelby Site: back of head Date to Remove Sutures/[place]elia: 06/04/17 - Follow Up Care Current Providers and Referrals: Patient,NotPresent [Unknown] - As per Instructions Filippo Weir MD [Medical Doctor] - (Follow-up in 3 weeks, call the office to schedule this appointment)
--- NOTE | 2017-06-01 13:38 | HOSPPROG ---
Hospitalist Progress Note Assessment/Plan: Patient is a 32-year-old male who recently sustained a 15 ft fall over rale while in [facility]. He had hit his head and lost consciousness. He was diagnosed with a scapula/glenoid fracture. At this time this is non operative. He also suffered occipital laceration, rib fractures x3. Today is my 1st encounter with the patient. Chart reviewed. * schizoaffective disorder, bipolar type -Abilify and Zoloft have been resumed. He is also on valproic acid (level is within therapeutic range) -Dr. Birmingham saw pt (with Behavioral Health) * rib fractures -continue aggressive pulmonary hygiene including spirometer *headache -none currently * scapula and glenoid fracture * concussion * occipital laceration * plan. Patient is doing well overall. I suspect he will be discharged in the next 1-2 days back to [facility]. It is important that he continue his medications for his schizophrenia disorder. D/W CM regarding dispo needs Subjective: No issues. Objective: Vital Signs Temp Pulse Resp BP Pulse Ox 36.7 C 61 16 123/73 H 92 06/01/17 08:00 06/01/17 08:00 06/01/17 08:00 06/01/17 08:00 06/01/17 08:00 Laboratory Results 05/30/17 04:57 05/30/17 04:57 05/31/17 06/01/17 06/02/17 05:59 05:59 05:59 Intake Total 1250 1500 Output Total 2 3 Balance 1248 1497 PT 13.2 SEC (12.0-15.0) 05/26/17 20:50 INR 0.98 (0.83-1.16) 05/26/17 20:50 - Physical Exam Constitutional: no apparent distress, appears nourished Eyes: PERRL, anicteric sclera Ears, Nose, Mouth, Throat: moist mucous membranes, hearing normal Cardiovascular: No JVD, No edema Respiratory: no respiratory distress, reduced air movement Gastrointestinal: No tenderness, No ascites Skin: warm, normal color Musculoskeletal: pain with ROM, generalized weakness Psychiatric: not anxious, poor insight, poor judgement, poor memory ICD10 Worksheet Patient Problems: Problems Problem Status Onset Multiple rib fractures Acute Closed right scapular fracture Acute Occipital scalp laceration Acute Schizoaffective disorder Acute Cellulitis Acute Polysubstance abuse Acute
--- NOTE | 2017-06-01 14:27 | ASDISCHSUM ---
Discharge Information Plan Status: Medically Cleared to Leave: Discharge Date:06/01/2017 02:15 PM CM D/C Disposition:Law Enforcement/Court/[facility] ADT D/C Disposition:Home, Routine, Self-Care Projected Discharge Date:06/01/2017 02:15 PM Transportation at D/C: Discharge Delay Reason: Follow-Up Date:06/01/2017 02:15 PM Discharge Slot: Final Diagnosis: Placement Information Patient Contact Information Contact Name:AMALIA Relationship:Father Address:[address] City:[place] [facility] Phone: [facility]/Zip Code:[place] [address] Email: Financial Information Financial Class: Primary Plan Desc:MEDICARE INPATIENT Primary Plan Number:[id number] Secondary Plan Desc:MEDICA[place] Secondary Plan Number:[id number] Assessment Information [facility] CM Progress Note CM Note CM Note Notes: 05/27/2017 Case Management Note Reviewed chart. Pt has extensive psych history. Pt admitted from nursing home after an approximately 15 foot 2 story fall. Awaiting PT and OT evals. Pt is currently incarcerated. Case Management d/c poc: return to nursing home when medically stable. Case Management to follow. Date Signed: 05/27/2017 04:26 PM Electronically Signed By:Shivani Sorenson RN [facility] CM Progress Note CM Note CM Note Notes: The following CM notes were not locked in [employer]: Annamarie Berry 05/28/17 Spoke with RN; informed pt may not be able to return to nursing home if he is not completing his ADLs independently. Discussed pt's psychiatric hx & recent suicide attempt. Spoke with Jessie BAR & ; orders recieved for Behaviorial Health RN consult & Psych consult. states CM will need to discuss pt's conditions for returning to nursing home with Irma ([phone]) at the nursing home. Alerted Yoli, in [facility], of Psych consult order; Yoli to discuss with Psych MD. Pt's RN Hilary reports she alerted Catherine Calvo of Behaviorial RN consult order as well. Alerted that pt is current with [facility]; [facility] will need to be notified when pt is medically stable & ready for dc. CM will continue to follow. Tiana Park 05/29/17 Spoke with Irma from the nursing home [phone]. Informed her Inpt Rehab declined to accept pt and PT/OT have cleared him. Irma stated that they have hired a private duty CAB DRIVER in the past to assist inmates in the nursing home. She will discuss with her administration and contact [facility] if she gets the go ahead. Pt was arrested for burglary and trespassing and other charges. CM will continue to follow for any d/c needs. Date Signed: 05/30/2017 04:32 PM Electronically Signed By:MAXX Bello [facility] CM Progress Note CM Note CM Note Notes: Spoke at length with Irma Suttongeorgette [phone] Health Services Admin with [facility], she states they are able to accept pt returning to nursing home as long as he is medically and psych stable. Clinicals including PT/OT notes were faxed to Irma (F:[phone]). Irma is able to set up CAB DRIVER care with [facility]; initially stating they may provide pt w a CAB DRIVER 12 hours a day and then states since they are paying for that out of pocket that may get too pricey. Irma may complete an on-site assessment at [facility]. This nursing home does not have an infirmary. Irma reports the staff can assist pt get dressed but want him able to complete ADLs as best as possible. The nursing home is prepared to take pt back as soon as tomorrow if pt does d/c. [facility] will also be able to provide pt narcs (no benzos) if prescribed. Based on discussion with psychiatrist Mariangel Birmingham it does not sound as if pt would qualify for [address] CM to follow. Date Signed: 05/31/2017 02:47 PM Electronically Signed By:MAXX Bello [facility] CM Progress Note CM Note CM Note Notes: Spoke with Irma at [facility], she arranged for [facility] to take pt because they have an infirmary. They will better be able to serve pt w issues such as pain control. The only narcotics allowed at [facility] are Tramadol and Tylenol 3. Pt medically stable for d/c to [facility], d/c orders and hard scripts sent w pt who will be transported by law enforcement. Date Signed: 06/01/2017 02:25 PM Electronically Signed By:MAXX Bello Intervention Information
== END 2017-06-01 14:15 | DRG 563 ==
LOC: EDUNIT# → EEVIPCON 22:00 → F3N 23:02 → OBSVTOIN 05-27 10:24
PROVIDERS: ADMIT Surgery; ATTEND Surgery
PROC: 0HQ0XZZ Repair Scalp Skin, External Approach (ICD-10-PCS; principal; 2017-05-26)
DX: S42.144A Nondisplaced fracture of glenoid cavity of scapula, right shoulder, initial encounter for closed fracture (principal); S01.01XA Laceration without foreign body of scalp, initial encounter; S22.41XA Multiple fractures of ribs, right side, initial encounter for closed fracture; S06.0X1A Concussion with loss of consciousness of 30 minutes or less, initial encounter; F25.0 Schizoaffective disorder, bipolar type; F90.9 Attention-deficit hyperactivity disorder, unspecified type; I10 Essential (primary) hypertension; K59.00 Constipation, unspecified; W13.0XXA Fall from, out of or through balcony, initial encounter; Y92.148 Other place in prison as the place of occurrence of the external cause; Y99.8 Other external cause status
CPT/HCPCS: 92523-GN; 96374; 97116-GP; 97162-GP; 97166-GO; 97530-GO; 97530-GP; 97535-GO; G0378; G8978-GP-CM; G8979-GP-CI; G8987-GO-CK; G8988-GO-CI; G9165-GN-CK; G9166-GN-CI; J1885; Q9967